=== PATIENT | male | born 1935 | race Caucasian/White ===

== ENCOUNTER → 2016-07-23 | Day surgery (SDC) | payer BC ==
[2016-07-10 14:50] VITALS: Ht 167.6 cm; Wt 77.3 kg
[~2016-07-23] VITALS: Ht 167.6 cm; Wt 77.3 kg
[~2016-07-23] MED LIST: 500ML BSS 0.3ML EPI 1:1000PF IRRIG ONE; ACET-1256 PO; ACETAMINOPHEN 325 MG TAB PO PRN; AMLO-110 PO; AMLO-114 PO; AMVISC PLUS 0.8ML SYRINGE INT OCU ONE; APIX1TAB3 PO; ATOR-24 PO; ATROPINE SULFATE 0.1 MG/ML 5ML SYR IV PRN; BRIMONIDINE TART 0.2% OP SOLN PER DROP CHARGE ONE; BSS FLUSH ONE; DOCU-94 PO; ENDOCOAT 0.85ML SYRINGE INT OCU ONE; EpHEDrine SULFATE INJ 50 MG/ML AMP IV PRN; EpINEphrine INJ 1MG/ML AMP 1 MG/ML AMP ONE; HYDR25TA4 PO; LACTATED RINGER'S 1000ML 500 ML IV SCH; LIDOCAINE 4% OP SOLN DROP CHARGE ONE; LIDOCAINE 4% OP SOLN DROP CHARGE OPL SCH; LIDOCAINE HCL 1% MPF 2 ML VIAL ONE; METH500T3 PO; METO25TA56 PO; MIDAZOLAM HCL 1 MG/ML 2ML VIAL ONE; MOXIFLOXACIN OPH SOLN PER DROP CHARGE ONE; OMEP20TA PO; POVIDONE-IODINE OP SOLN 30 ML BTL ONE; PROPARACAINE 0.5% OP SOLN PER DROP CHARGE OPL SCH; RIVA1TAB4 PO; TAMS0.4C38 PO; TOBRAMYCIN/DEXAMETHASONE OPH OINT PER APPLN CHARGE ONE
[2016-07-23] MEDS: PHENYLEPHRINE HCL 2.5% OP SOLN PER DROP CHARGE OPL SCH ×2 (07:11→07:16)
[2016-07-23] MEDS: TROPICAMIDE 1% OP SOLN PER DROP CHARGE OPL SCH ×2 (07:12→07:17)
[2016-07-23] MEDS: CYCLOPENTOLATE HCL 1% OP SOLN PER DROP CHARGE OPL SCH ×2 (07:13→07:18)
[2016-07-23] MEDS: KETOROLAC 0.5% OP SOLN PER DROP CHARGE OPL SCH ×2 (07:14→07:19)
[2016-07-23] MEDS: MOXIFLOXACIN OPH SOLN PER DROP CHARGE OPL SCH ×2 (07:15→07:20)
--- NOTE | 2016-07-23 07:26 | History & Physical Bridge - [place] ---
H&P Re-Evaluation Bridge Note: I have examined the patient, reviewed the History & Physical and in the interval since the performance of the History & Physical I have noted the following changes of clinical significance: No changes noted
--- NOTE | 2016-07-23 08:25 | Discharge Instructions-SurgCtr ---
Discharge Instructions Visit Reason for Visit: Cataract Left Eye Discharge Discharge Diagnosis / Problem: cataract left eye Discharge Goals Goal(s): Improve function Activity Recommendations Activity Limitations: per Instructions/Follow-up section Lifting Limitations: no more than 5 pounds Anesthesia . Post Anesthesia Instructions: If you have had General Anesthesia or IV Sedation: * Do not drive today. * Resume driving when surgeon permits. * Do not make important decisions or sign legal documents today. * Call surgeon for: 1. Temperature elevations greater than 101 degrees F. 2. Uncontrollable pain. 3. Excessive bleeding. 4. Persistent nausea and vomiting. 5. Medication intolerance (nausea, vomiting or rash). * For nausea and vomiting use only clear liquids such as: tea, soda, bouillon until nausea subsides, then gradually increase diet as tolerated. * If you have any concerns or questions, call your surgeon's office. If physician is unavailable and it is an emergency, call 911 or go to the nearest emergency room. . Instructions / Follow-Up Instructions / Follow-Up ACTIVITY RECOMMENDATIONS: * Light activities * You may walk outside, read, watch television. * Mild irritation and blurred vision are common for the first few days, redness around the white part of the eye is common. MEDICATIONS: Resume previous medications unless instructed otherwise by your surgeon. Eye drops (today and tomorrow): Gatifloxacin - one drop in operative eye every 2 hours while awake Prednisolone 1% - one drop in operative eye every 2 hours while awake Prolensa - one drop in operative eye once daily SPECIAL CARE INSTRUCTIONS: * If any problems or concerns, please call Dr. Pierson's office at . * Keep plastic shield taped over eye to sleep at night. * Keep plastic shield taped over eye except to administer eye drops. * Keep plastic shield on until office visit the following day. FOLLOW UP VISIT: Follow-up with Dr. Pierson in the [place] office as scheduled. If not already scheduled, please call the office at . Diet Recommendations Home Diet: resume previous diet Procedures Procedures Performed: Left Cataract Phacoemulsification With Intraocular Lens Implant Pending Studies Studies pending at discharge: no Medical Emergencies . Who to Call and When: Medical Emergencies: If at any time you feel your situation is an emergency, please call 911 immediately. . Non-Emergent Contact Non-Emergency issues call your: [employer] . . "Provider Documentation" section prepared by Frank Pierson.
--- NOTE | 2016-07-23 08:25 | [facility] Post Operative Brief Note ---
Immediate Operative Summary Operative Date Jul 23, 2016. Pre-Operative Diagnosis Cataract Left Eye Post-Operative Diagnosis Same Procedure(s) Performed Left Cataract Phacoemulsification With Intraocular Lens Implant Surgeon Dr. Pierson Biology Lecturer Surgeon(s) None Estimated Blood Loss None Findings cataract left eye Specimens None Complication(s) None Disposition Recovery Room / PACU
[2016-07-23 08:27] VITALS: TEMP 36.5
[2016-07-23 08:43] VITALS: BP 113/71; PULSE 63; O2SAT 95
--- NOTE | 2016-07-23 08:43 | Anesthesia Progress Nt - [facility] ---
Anesthesia Post Op Note Date & Time Jul 23, 2016 at 08:42 Vital Signs Pain Intensity: 0 Vital Signs Past 12 Hours Date Time Temp Pulse Resp B/P Pulse Ox O2 Delivery O2 Flow Rate FiO2 07/23/16 08:27 36.5 78 20 123/70 93 Room Air 07/23/16 06:49 36.4 80 16 118/79 96 Room Air Notes Mental Status: alert / awake / arousable, participated in evaluation Pt Amnestic to Procedure: Yes Nausea / Vomiting: adequately controlled Pain: adequately controlled Airway Patency, RR, SpO2: stable & adequate BP & HR: stable & adequate Hydration State: stable & adequate Anesthetic Complications: no major complications apparent
--- NOTE | 2016-07-23 08:51 | OPERATIVE REPORT ---
DATE OF OPERATION: 07/23/2016 PREOPERATIVE DIAGNOSIS: Cataract, left eye. POSTOPERATIVE DIAGNOSIS: Cataract, left eye. PROCEDURE: Phacoemulsification cataract extraction with intraocular lens placement, left eye. SURGEON: Dr. Pierson. COMPLICATIONS: None. ESTIMATED BLOOD LOSS: None. ANESTHESIA: Topical with sedation. OPERATION AND FINDINGS: After informed consent was obtained in the holding area the patient was wheeled back to the Operating Room where cardiac monitoring leads and oxygen by nasal cannula was administered by Anesthesia. Gentle IV sedation was given, and the patient's left eye was prepped and draped in usual sterile fashion. A wire lid speculum was placed into the left eye and the operating microscope was swung into position. Using 0.12 forceps and a Supersharp blade a paracentesis port was made 3 o'clock hours away from the 3 o'clock position of patient's left eye. 1% non-preserved Lidocaine was then injected into the anterior chamber for anesthesia. A 2.2 mm keratotome blade was then used to make a shelved clear corneal incision at the 3 o'clock position of his left eye. Amvisc was injected into the anterior chamber and a cystotome and Utrata forceps were used to perform a curvilinear capsulorrhexis. BSS on a hydrodissection cannula was used to hydrodissect the lens nucleus away from the capsular bag. The phacoemulsification handpiece was then used in a stop and chop fashion to remove the lens nucleus. The irrigation and aspiration handpiece was then used to remove the residual cortical material. Amvisc was injected into the capsular bag and anterior chamber and a Bausch \T\ Lomb MX60, 23.0 Diopter intraocular lens was injected into the capsular bag. Irrigation and aspiration handpiece was used to remove the residual viscoelastic material. The wounds were hydrated and noted to be watertight. The wire lid speculum was removed from the eye. Vigamox, Brimonidine, and TobraDex ointment were placed on the eye and it was shielded. It should be noted that EndoCoat was used throughout the case to protect the cornea endothelium. DISPOSITION: The patient tolerated the procedure well and was wheeled to the post anesthesia care unit in stable condition. I attest to the content of the Intraoperative Record and any orders documented therein. Any exceptions are noted below. I attest to the content of the Intraoperative Record and any orders documented therein. Any exceptio ns are noted below.
== END | disposition home or self-care (01) ==
LOC: X.SURG 06:42
PROVIDERS: ATTEND Ophthalmology
DX: H26.9 Unspecified cataract (principal); I10 Essential (primary) hypertension; J44.9 Chronic obstructive pulmonary disease, unspecified; Z86.73 Personal history of transient ischemic attack (TIA), and cerebral infarction without residual deficits; Z68.28 Body mass index [BMI] 28.0-28.9, adult; Z85.828 Personal history of other malignant neoplasm of skin

== ENCOUNTER → 2016-10-19 | Outpatient (CLI) | payer BC ==
[~2016-10-19] MED LIST changes: -500ML BSS 0.3ML EPI 1:1000PF IRRIG ONE; -ACETAMINOPHEN 325 MG TAB PO PRN; -AMVISC PLUS 0.8ML SYRINGE INT OCU ONE; -ATROPINE SULFATE 0.1 MG/ML 5ML SYR IV PRN; -BRIMONIDINE TART 0.2% OP SOLN PER DROP CHARGE ONE; -BSS FLUSH ONE; -ENDOCOAT 0.85ML SYRINGE INT OCU ONE; -EpHEDrine SULFATE INJ 50 MG/ML AMP IV PRN; -EpINEphrine INJ 1MG/ML AMP 1 MG/ML AMP ONE; -LACTATED RINGER'S 1000ML 500 ML IV SCH; -LIDOCAINE 4% OP SOLN DROP CHARGE ONE; -LIDOCAINE 4% OP SOLN DROP CHARGE OPL SCH; -LIDOCAINE HCL 1% MPF 2 ML VIAL ONE; -MIDAZOLAM HCL 1 MG/ML 2ML VIAL ONE; -MOXIFLOXACIN OPH SOLN PER DROP CHARGE ONE; -POVIDONE-IODINE OP SOLN 30 ML BTL ONE; -PROPARACAINE 0.5% OP SOLN PER DROP CHARGE OPL SCH; -TOBRAMYCIN/DEXAMETHASONE OPH OINT PER APPLN CHARGE ONE
== END | disposition home or self-care (01) ==
LOC: C.LABMFLN 12:01
PROVIDERS: ATTEND Family Medicine
DX: R31.9 Hematuria, unspecified (principal)

== ENCOUNTER → 2016-10-19 | Outpatient (CLI) | payer BC ==
[2016-10-19 16:44] LABS: BASO % 1.1 %; BASO ABS # 0.07 K/uL (0-0.2); COMPLETE YES; EOS % 6.4 %; HEMATOCRIT 42.9 % (42-52); IG% 0.2 %; LYMPH % 31.1 %; LYMPH ABS # 2.04 K/uL (1.2-3.4); MEAN CELL VOLUME 93.5 fL (80-100); MEAN CORPUSCULAR HEMOGLOBIN 32.7 pg (25-34); MONO % 13.7 %; NEUT % 47.5 %; PLATELET COUNT 245 K/uL (130-400); RED BLOOD COUNT 4.59 M/uL (4.7-6.1); WHITE BLOOD COUNT 6.56 K/uL (4.8-10.8)
[2016-10-19 17:21] LABS: ALT/SGPT 26 U/L (12-78); AST/SGOT 15 U/L (15-37); BLOOD UREA NITROGEN 21 mg/dl (7-18); BUN/CREATININE RATIO 17.1 (10-20); CALCIUM 8.7 mg/dl (8.5-10.1); CARBON DIOXIDE 29 mmol/L (21-32); CHLORIDE 104 mmol/L (98-107); CHOLESTEROL 146 mg/dl (0-200); GLUCOSE 94 mg/dl (70-99); MAGNESIUM 1.8 mg/dl (1.8-2.4); POTASSIUM 3.8 mmol/L (3.5-5.1); SODIUM 141 mmol/L (136-145); TRIGLYCERIDES 85 mg/dl (0-150); VERY LOW DENSITY LIPOPROT CALC 17 mg/dl
[2016-10-19 17:22] LABS: CHOLESTEROL/HDL RATIO 3.2; HDL CHOLESTEROL 46 mg/dl; LDL CHOLESTEROL CALCULATED 83 mg/dl
--- NOTE | 2016-10-19 18:26 | DIAGNOSTIC IMAGING REPORT ---
ABDOMEN AND PELVIS CT WITH IV AND ORAL CONTRAST CT DOSE: 422.13 mGy.cm HISTORY: R31.9 [id number] Abdominal pain, acute, right lower quadrant TECHNIQUE: Multiaxial CT images of the abdomen and pelvis were performed following the use of intravenous and oral contrast. COMPARISON STUDY: Abdomen and pelvis CT 12/13/2014. FINDINGS: The heart remains enlarged. Bibasilar interstitial thickening. There is a stable 1 cm nodule within the right lower lobe on image 15. No suspicious lytic or blastic osseous lesions. The liver, gallbladder, pancreas, and adrenal glands are unremarkable. A normal spleen is not identified. 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 Some of these are calcified. These remain unchanged. Multiple bilateral renal hypodense lesions are not significantly changed. These likely represent cysts. Dominant lesion within the upper pole of the right kidney measures 6.7 cm. No renal stones or hydronephrosis. Right posterior bladder diverticulum is again noted. No retroperitoneal lymphadenopathy. Tiny fat-containing umbilical hernia. Colonic diverticulosis. No bowel wall thickening or obstruction. Normal appendix. Bladder is mildly distended. There may be mild mild bladder wall thickening. The prostate gland is mildly enlarged. This protrudes into the bladder base. IMPRESSION: 1. No bowel wall thickening or obstruction. 2. Normal appendix. 3. Colonic diverticulosis. 4. Multiple bilateral renal hypodense lesions are not significantly changed. These favor cysts. 5. Bladder is mildly distended. There may be mild bladder wall thickening. Recommend correlation with urinalysis. 6. Stable 1 cm nodule within the right lower lobe which demonstrates near 2 year stability. Please refer to the chart below for recommended follow-up. Please refer to below summary of Fleischner criteria recommendations for follow-up of incidental CT nodules (Brett Pierce, Guidelines for management of small pulmonary nodules detected on CT scans: A statement from the Fleischner Society, Radiology 237: [phone].) SOLID NODULES Solitary nodule size: <6 mm * Low risk patients: no follow-up needed * high risk patients: optional CT at 12 months Solitary nodule size: 6-8 mm * Low risk patients: follow-up at 6-12 months, then consider further follow-up at 18-24 months * high risk patients: initial follow-up CT at 6-12 months and then at 18-24 months if no change Solitary nodule size: >8 mm * either low or high risk patients - consider follow-up CT at 3 months, and/or CT-PET, and/or biopsy Multiple nodules size: <6 mm * Low risk patients: no routine follow-up * high risk patients: optional CT at 12 months Multiple nodules size: 6-8 mm * Low risk patients: follow-up at 3-6 months, then consider further follow-up at 18-24 months * high risk patients: follow-up at 3-6 months, then at 18-24 months if no change Multiple nodules size: >8 mm * Low risk patients: follow-up at 3-6 months, then consider further follow-up at 18-24 months * high risk patients: follow-up at 3-6 months, then at 18-24 months if no change Note: newly detected indeterminate nodule in persons 35 years of age or older. * Low risk patients: minimal or absent history of smoking and/or other known risk factors * high risk patients: history of smoking or of other known risk factors (e.g. first degree relative with lung cancer, or exposure to asbestos, radon, uranium) * if a nodule up to 8 mm is partly solid or is ground glass further follow-up is required after 24 months to exclude possible slow growing adenocarcinoma (JAYLYN) SUBSOLID NODULES Solitary pure ground-glass nodule * nodule size <6 mm - no CT follow-up required * nodule size >=6 mm - follow-up CT at 6-12 months, then every 2 years until 5 years Solitary part-solid nodule * nodule size <6 mm - no CT follow-up required * nodule size >=6 mm - follow-up CT at 3-6 months. If unchanged, and solid component remains <6 mm, then annual follow-up for 5 years Multiple subsolid nodules * nodule size <6 mm - follow-up CT at 3-6 months, consider further follow-up at 2 and 4 years if stable * nodule size >=6 mm - follow-up CT at 3-6 months, subsequent management based on the most suspicious nodule(s) Electronically signed by: Saqib Boateng M.D. 10/19/2016 6:24 PM Dictated Date/Time: 10/19/2016 6:15 PM
== END | disposition home or self-care (01) ==
LOC: C.CTS 15:39
PROVIDERS: ATTEND Family Medicine
DX: N28.89 Other specified disorders of kidney and ureter (principal); R31.9 Hematuria, unspecified; R10.31 Right lower quadrant pain; E78.00 Pure hypercholesterolemia, unspecified; I10 Essential (primary) hypertension

== ENCOUNTER → 2016-11-12 | Outpatient (CLI) | payer BC ==
[2016-11-12 18:47] LABS: BASO % 0.7 %; BASO ABS # 0.05 K/uL (0-0.2); EOS % 5.3 %; HEMATOCRIT 42.5 % (42-52); IG% 0.3 %; LYMPH % 27.1 %; LYMPH ABS # 1.91 K/uL (1.2-3.4); MEAN CELL VOLUME 93.6 fL (80-100); MEAN PLATELET VOLUME 11.5 fL (7.4-10.4); MONO % 10.9 %; NEUT % 55.7 %; PLATELET COUNT 231 K/uL (130-400); RED BLOOD COUNT 4.54 M/uL (4.7-6.1); WHITE BLOOD COUNT 7.04 K/uL (4.8-10.8)
[2016-11-12 18:49] LABS: COMPLETE YES; MEAN CORPUSCULAR HGB CONC 35.3 g/dl (32-36)
[2016-11-12 20:02] LABS: BLOOD UREA NITROGEN 20 mg/dl (7-18); CHLORIDE 106 mmol/L (98-107); GLUCOSE 91 mg/dl (70-99); POTASSIUM 4.2 mmol/L (3.5-5.1); SODIUM 142 mmol/L (136-145)
[2016-11-12 20:03] LABS: BUN/CREATININE RATIO 18.5 (10-20); CALCIUM 8.5 mg/dl (8.5-10.1); CARBON DIOXIDE 26 mmol/L (21-32)
== END | disposition home or self-care (01) ==
LOC: C.LABMFLN 12:26
PROVIDERS: ATTEND Family Medicine
DX: R31.9 Hematuria, unspecified (principal); R10.31 Right lower quadrant pain; N28.89 Other specified disorders of kidney and ureter; N40.0 Benign prostatic hyperplasia without lower urinary tract symptoms; R10.2 Pelvic and perineal pain

== ENCOUNTER → 2016-12-17 | Outpatient (CLI) | payer BC ==
[2016-12-17 18:17] LABS: AMYLASE 62 U/L (25-115)
[2016-12-17 19:59] LABS: LYME DISEASE AB IGG NEG (NEG); LYME DISEASE AB IGM NEG (NEG)
== END | disposition home or self-care (01) ==
LOC: C.LABMFLN 12:41
PROVIDERS: ATTEND Family Medicine
DX: R11.0 Nausea (principal); R42 Dizziness and giddiness; M79.1 Myalgia; Z23 Encounter for immunization

== ENCOUNTER → 2016-12-20 | Outpatient (CLI) | payer BC ==
--- NOTE | 2016-12-20 08:40 | DIAGNOSTIC IMAGING REPORT ---
(LIVER) ABDOMEN LIMITED HISTORY: 81 years Male R10.9 Abdominal pain in the right upper abdomen COMPARISON: CT abdomen and pelvis 10/19/2016 TECHNIQUE: Multiple real-time sonographic images of the abdominal right upper quadrant were obtained assessing grayscale appearance and color flow. FINDINGS: Pancreas is mostly obscured by bowel gas with the imaged portions appearing mildly fatty replaced. The hepatic parenchyma is slightly heterogeneous which is nonspecific without focal mass identified. Gallbladder is partly contracted without gallbladder wall thickening, pericholecystic fluid collections or shadowing cholelithiasis. Common bile duct is within normal limits, 0.45 cm. Multiple cysts are again seen within the right kidney. IMPRESSION: 1. No evidence of cholelithiasis or acute cholecystitis. 2. No biliary ductal dilatation. 3. Multiple right-sided renal cysts redemonstrated. The above report was generated using voice recognition software. It may contain grammatical, syntax or spelling errors. Electronically signed by: Mc Roy M.D. 12/20/2016 8:39 AM Dictated Date/Time: 12/20/2016 8:33 AM
--- NOTE | 2016-12-20 09:12 | DIAGNOSTIC IMAGING REPORT ---
GI SERIES W/AIR ROUTINE CLINICAL HISTORY: R10.9 Abdominal [id number] COMPARISON STUDY: None FLUOROSCOPY TIME: 3.2 minutes. 25 fluoroscopic spot images were acquired.. FINDINGS: The patient swallowed effervescent granules and barium without difficulty. There is esophageal dysmotility. There is mild reflux. The patient swallowed one half inch barium tablet which passed into the stomach. There are multiple gastric filling defects consistent with polyps. In addition there is an area of mucosal irregularity visualized on image #11/25. Endoscopic correlation is recommended. No duodenal bulb abnormalities are evident. The ligament Treitz is located in the normal anatomical position. IMPRESSION: 1. Multiple gastric filling defects consistent with polyps 2. Small area of mucosal irregularity as visualized in image number 11/25 3. Endoscopic follow-up is recommended Electronically signed by: Rony Honeycutt M.D. 12/20/2016 9:10 AM Dictated Date/Time: 12/20/2016 9:07 AM
== END | disposition home or self-care (01) ==
LOC: C.ULTR 07:58
PROVIDERS: ATTEND Family Medicine
DX: R10.9 Unspecified abdominal pain (principal)

== ENCOUNTER → 2017-01-07 | Day surgery (SDC) | payer BC ==
[2016-12-27 11:28] VITALS: Ht 167.6 cm; Wt 77.3 kg
[~2017-01-07] VITALS: Ht 167.6 cm; Wt 77.3 kg
[~2017-01-07] MED LIST changes: -AMLO-110 PO; -HYDR25TA4 PO; +LIDOCAINE HCL 2% 2 ML VIAL (20MG/ML) ONE; -METH500T3 PO; +PROPOFOL IV EMULSION 10 MG/ML 20 ML VIAL IV ONE; -RIVA1TAB4 PO
[2017-01-07 14:49] VITALS: TEMP 36.4
--- NOTE | 2017-01-07 15:08 | Endo History and Physical ---
History & Physical Date of Service: Jan 07, 2017. Chief Complaint: abdominal pain Referring Physician: Dr. 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) Hx Thoracic Surgery: No Hx Orthopedic: No Hx Urinary Tract Surgery: No Family History None Social History Smoking Status: Never Smoker Hx Substance Use: No Hx Alcohol Use: No Allergies Coded Allergies: Lisinopril (Verified Adverse Reaction, Mild, DIZZINESS, 12/27/16) Current Medications Reported Home Medications Medications Dose Route/Sig Max Daily Dose Days Date Category Tylenol (Acetaminophen) 500 Mg Tab 500 Mg PO BID PRN 12/27/16 Reported Eliquis (Apixaban) 5 Mg Tab 5 Mg PO BID 12/27/16 Reported Flomax (Tamsulosin Hcl) 0.4 Mg Cap 0.4 Mg PO HS 12/27/16 Reported Norvasc (Amlodipine Besylate) 10 Mg Tab 10 Mg PO QAM 12/27/16 Reported Colace (Docusate Sodium) 100 Mg Cap 1 Cap PO HS 07/10/16 Reported Omeprazole 20 Mg Tab 40 Mg PO QAM 07/10/16 Reported Lipitor (Atorvastatin Calcium) 40 Mg Tab 40 Mg PO HS 07/10/16 Reported Lopressor (Metoprolol Tartrate) 25 Mg Tab 25 Mg PO BID 07/10/16 Reported Vital Signs Weight (Kilograms): 77.27 Height (Feet): 5 Height (Inches): 6 Date Time Temp Pulse Resp B/P (MAP) Pulse Ox O2 Delivery O2 Flow Rate FiO2 01/07/17 14:49 36.4 80 18 163/92 (115) 96 Room Air Physical Exam General Appearance: WD/WN Respiratory/Chest: Respiratory effort: no dyspnea Cardiovascular: Heart Auscultation: RRR Abdomen: Inspection & Palpation: soft Assessment and Plan abd pain for EGD
--- NOTE | 2017-01-07 15:29 | Discharge Instructions ---
Endoscopy Patient Instructions Date / Procedure(s) Performed Jan 07, 2017. EGD Allergy Information Coded Allergies: Lisinopril (Verified Adverse Reaction, Mild, DIZZINESS, 12/27/16) Discharge Date / Findings Jan 07, 2017. hiatal hernia, gastric polyps Medication Instructions Stopped Medication(s): took Eliquis yesterday at 1830 Restart Stopped Medication(s): resume meds Reported Home Medications Medications Dose Route/Sig Max Daily Dose Days Date Category Tylenol (Acetaminophen) 500 Mg Tab 500 Mg PO BID PRN 12/27/16 Reported Eliquis (Apixaban) 5 Mg Tab 5 Mg PO BID 12/27/16 Reported Flomax (Tamsulosin Hcl) 0.4 Mg Cap 0.4 Mg PO HS 12/27/16 Reported Norvasc (Amlodipine Besylate) 10 Mg Tab 10 Mg PO QAM 12/27/16 Reported Colace (Docusate Sodium) 100 Mg Cap 1 Cap PO HS 07/10/16 Reported Omeprazole 20 Mg Tab 40 Mg PO QAM 07/10/16 Reported Lipitor (Atorvastatin Calcium) 40 Mg Tab 40 Mg PO HS 07/10/16 Reported Lopressor (Metoprolol Tartrate) 25 Mg Tab 25 Mg PO BID 07/10/16 Reported Provider Instructions Activity Restrictions - No exercising or heavy lifting for 24 hours. - Do not drink alcohol the day of the procedure. - Do not drive a car or operate machinery until the day after the procedure. - Do not make any important decisions or sign important papers in 24 hours after the procedure. Following Day: - Return to full activity which may include returning to work/school. Diet Start your diet with liquids and light foods (jello, soup, juice, toast). Then eat your usual diet if not nauseated. Treatment For Common After Affects For mild abdominal pain, bloating, or excessive gas: - Rest - Eat lightly - Lie on right side Follow-Up Information Follow-up with Dr. Kevin Minaya as scheduled Anesthesia Information What You Should Know You have had a procedure that required some medicine to reduce anxiety and discomfort. This treatment is called moderate sedation. After receiving the treatment, you may be sleepy, but you will be able to breathe on your own. The effects of the treatment may last for several hours. Follow these instructions along with Activity/Diet recommendations noted above: * Do NOT do anything where dizziness or clumsiness would be dangerous. * Rest quietly at home today, then you can be up and about tomorrow. * Have a responsible person stay with you the rest of today. * You may have had an I.V. today. If so, you may take the dressing off later today. Recommendations Call your doctor if: * Trouble breathing * Continuous vomiting for more than 24 hours * Temperature above 101 degrees * Severe abdominal pain or bloating * Pain not relieved by pain medicine ordered * There is increased drainage or redness from any incision * A large amount of rectal bleeding greater than 2-3 tablespoons. (If you had a polyp/s removed or have hemorrhoids, a small amount of blood - from the rectum is to be expected.) * You have any unanswered questions or concerns. IN THE EVENT OF A SERIOUS EMERGENCY, GO TO THE NEAREST EMERGENCY ROOM Your discharge instructions were prepared by provider Adriano Cobb. Patient Instructions Signature Page Hal Fontenot Patient (or Guardian) Signature/Date: I have read and understand the instructions given to me by my caregivers. Caregiver/RN/Doctor Signature/Date: The above-named patient and/or guardian has received patient instructions on this date. + Original Patient Signature Page (only) stays with chart. Please make copy for patient.
--- NOTE | 2017-01-07 15:29 | Anesthesiology Progress Note ---
Anesthesia Post Op Note Date & Time Jan 07, 2017 at 15:29 Vital Signs Pain Intensity: 0 Vital Signs Past 12 Hours Date Time Temp Pulse Resp B/P (MAP) Pulse Ox O2 Delivery O2 Flow Rate FiO2 01/07/17 14:49 36.4 80 18 163/92 (115) 96 Room Air Notes Mental Status: alert / awake / arousable, participated in evaluation Pt Amnestic to Procedure: Yes Nausea / Vomiting: adequately controlled Pain: adequately controlled Airway Patency, RR, SpO2: stable & adequate BP & HR: stable & adequate Hydration State: stable & adequate Anesthetic Complications: no major complications apparent
--- NOTE | 2017-01-07 15:32 | GI REPORT ---
Procedure Date: 01/07/2017 3:02 PM Procedure: Upper GI endoscopy Indications: Epigastric abdominal pain Medicines: Propofol total dose 120 mg IV, Lidocaine 40 mg IV Complications: No immediate complications. Estimated Blood Loss: Estimated blood loss: none. Procedure: Pre-Anesthesia Assessment: - Prior to the procedure, a History and Physical was performed, and patient medications, allergies and sensitivities were reviewed. The patient's tolerance of previous anesthesia was reviewed. - The risks and benefits of the procedure and the sedation options and risks were discussed with the patient. All questions were answered and informed consent was obtained. After obtaining informed consent, the endoscope was passed under direct vision. Throughout the procedure, the patient's blood pressure, pulse, and oxygen saturations were monitored continuously. The scope was introduced through the mouth, and advanced to the second part of duodenum. The upper GI endoscopy was accomplished without difficulty. The patient tolerated the procedure well. Findings: A small hiatus hernia was present. Multiple 4 mm semi-sessile polyps were found in the gastric body. The examined duodenum was normal. Impression: - Small hiatus hernia. - Multiple gastric polyps. - Normal examined duodenum. - No specimens collected. Recommendation: - Discharge patient to home (ambulatory). - Continue present medications. - Return to primary care physician PRN. Adriano Cobb M.D. Adriano Cobb MD 01/07/2017 3:31:36 PM This report has been signed electronically. Note Initiated On: 01/07/2017 3:02 PM I attest to the content of the Intraoperative Record and orders documented therein, exceptions below
[2017-01-07 16:01] VITALS: BP 149/93; PULSE 76; O2SAT 93
== END | disposition home or self-care (01) ==
LOC: C.GI 14:27
PROVIDERS: ATTEND Internal Medicine Gastroenterology
DX: R10.13 Epigastric pain (principal); K44.9 Diaphragmatic hernia without obstruction or gangrene; J44.9 Chronic obstructive pulmonary disease, unspecified; G47.33 Obstructive sleep apnea (adult) (pediatric); I10 Essential (primary) hypertension; E78.5 Hyperlipidemia, unspecified; I48.91 Unspecified atrial fibrillation; K21.9 Gastro-esophageal reflux disease without esophagitis; Z86.73 Personal history of transient ischemic attack (TIA), and cerebral infarction without residual deficits; N40.0 Benign prostatic hyperplasia without lower urinary tract symptoms; Z85.820 Personal history of malignant melanoma of skin

== ENCOUNTER → 2017-03-12 | Outpatient (CLI) | payer BC ==
[~2017-03-12] MED LIST changes: -LIDOCAINE HCL 2% 2 ML VIAL (20MG/ML) ONE; -PROPOFOL IV EMULSION 10 MG/ML 20 ML VIAL IV ONE
[2017-03-12 13:08] LABS: HEMATOCRIT 44.8 % (42-52)
[2017-03-12 14:19] LABS: ALT/SGPT 23 U/L (12-78); AST/SGOT 20 U/L (15-37); BLOOD UREA NITROGEN 19 mg/dl (7-18); BUN/CREATININE RATIO 18.9 (10-20); CALCIUM 8.4 mg/dl (8.5-10.1); CARBON DIOXIDE 26 mmol/L (21-32); CHLORIDE 106 mmol/L (98-107); GLUCOSE 95 mg/dl (70-99); SODIUM 138 mmol/L (136-145)
[2017-03-12 14:20] LABS: CHOLESTEROL 253 mg/dl (0-200); CHOLESTEROL/HDL RATIO 5.6; HDL CHOLESTEROL 45 mg/dl; LDL CHOLESTEROL CALCULATED 179 mg/dl; TRIGLYCERIDES 143 mg/dl (0-150); VERY LOW DENSITY LIPOPROT CALC 29 mg/dl
== END | disposition home or self-care (01) ==
LOC: C.LABMFLN 08:00
PROVIDERS: ATTEND Family Medicine
DX: E78.00 Pure hypercholesterolemia, unspecified (principal); D64.9 Anemia, unspecified; I48.91 Unspecified atrial fibrillation

== ENCOUNTER → 2017-07-02 | Outpatient (CLI) | payer BC ==
[2017-07-02 17:58] LABS: BASO % 1.1 %; BASO ABS # 0.07 K/uL (0-0.2); EOS % 4.8 %; HEMATOCRIT 41.3 % (42-52); HEMOGLOBIN 14.1 g/dL (14.0-18.0); IG# 0.01 K/uL (0.00-0.02); LYMPH ABS # 2.14 K/uL (1.2-3.4); MEAN CELL VOLUME 94.1 fL (80-100); MEAN CORPUSCULAR HEMOGLOBIN 32.1 pg (25-34); MEAN CORPUSCULAR HGB CONC 34.1 g/dl (32-36); MEAN PLATELET VOLUME 11.4 fL (7.4-10.4); MONO ABS # 0.82 K/uL (0.11-0.59); NEUT % 46.9 %; NEUT ABS # 2.96 K/uL (1.4-6.5); PLATELET COUNT 205 K/uL (130-400)
[2017-07-02 18:17] LABS: BLOOD UREA NITROGEN 19 mg/dl (7-18); CALCIUM 8.8 mg/dl (8.5-10.1); CARBON DIOXIDE 27 mmol/L (21-32); CREATININE 1.16 mg/dl (0.60-1.40); GLUCOSE 87 mg/dl (70-99); POTASSIUM 4.3 mmol/L (3.5-5.1); SODIUM 138 mmol/L (136-145)
== END | disposition home or self-care (01) ==
LOC: C.LABMFLN 15:41
PROVIDERS: ATTEND Family Medicine
DX: K62.5 Hemorrhage of anus and rectum (principal)

== ENCOUNTER → 2017-07-25 | Day surgery (SDC) | payer BC ==
[2017-07-17 13:32] VITALS: Ht 167.6 cm; Wt 79.5 kg
[~2017-07-25] VITALS: Ht 167.6 cm; Wt 79.5 kg
[~2017-07-25] MED LIST changes: +FINA5TAB PO; +LIDOCAINE HCL 2% 2 ML VIAL (20MG/ML) ONE; -OMEP20TA PO; +OMEP40CA41 PO; +PHENYLEPHRINE 100MCG/ML 5ML SYR ONE; +PROPOFOL IV EMULSION 10 MG/ML 20 ML VIAL IV ONE
[2017-07-25 14:46] VITALS: TEMP 36.5
--- NOTE | 2017-07-25 15:02 | Endo History and Physical ---
History & Physical Date of Service: Jul 25, 2017. Chief Complaint: rectal bleeding Referring Physician: Dr. 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) Hx Thoracic Surgery: No Hx Orthopedic: No Hx Urinary Tract Surgery: No Family History None Social History Smoking Status: Never Smoker Hx Substance Use: No Hx Alcohol Use: No Allergies Coded Allergies: Lisinopril (Verified Adverse Reaction, Mild, DIZZINESS, 07/17/17) Current Medications Reported Home Medications Medications Dose Route/Sig Max Daily Dose Days Date Category Dose Instructions Proscar (Finasteride) 5 Mg Tab 5 Mg PO QPM 07/17/17 Reported Prilosec (Omeprazole) 40 Mg Cap 20 Mg PO QAM 07/17/17 Reported Tylenol (Acetaminophen) 500 Mg Tab 500 Mg PO BID PRN 12/27/16 Reported Eliquis (Apixaban) 5 Mg Tab 5 Mg PO BID 12/27/[address] WHITLEY FOR THE TIME BEING. Flomax (Tamsulosin Hcl) 0.4 Mg Cap 0.4 Mg PO HS 12/27/16 Reported Norvasc (Amlodipine Besylate) 10 Mg Tab 10 Mg PO QAM 12/27/16 Reported Colace (Docusate Sodium) 100 Mg Cap 1 Cap PO HS 07/10/16 Reported Lipitor (Atorvastatin Calcium) 40 Mg Tab 40 Mg PO HS 07/10/16 Reported Lopressor (Metoprolol Tartrate) 25 Mg Tab 25 Mg PO BID 07/10/16 Reported Vital Signs Weight (Kilograms): 79.55 Height (Feet): 5 Height (Inches): 6 Date Time Temp Pulse Resp B/P (MAP) Pulse Ox O2 Delivery O2 Flow Rate FiO2 07/25/17 14:46 36.5 87 20 132/98 (109) 97 Room Air Physical Exam General Appearance: WD/WN Respiratory/Chest: Respiratory effort: no dyspnea Cardiovascular: Heart Auscultation: RRR Abdomen: Inspection & Palpation: soft Assessment and Plan rectal bleeding for colonoscopy
--- NOTE | 2017-07-25 15:28 | Discharge Instructions ---
Endoscopy Patient Instructions Date / Procedure(s) Performed Jul 25, 2017. Colonoscopy Allergy Information Coded Allergies: Lisinopril (Verified Adverse Reaction, Mild, DIZZINESS, 07/17/17) Discharge Date / Findings Jul 25, 2017. diverticulosis, polyp Medication Instructions Stopped Medication(s): has been off Eloquis since June Restart Stopped Medication(s): resume meds Reported Home Medications Medications Dose Route/Sig Max Daily Dose Days Date Category Dose Instructions Proscar (Finasteride) 5 Mg Tab 5 Mg PO QPM 07/17/17 Reported Prilosec (Omeprazole) 40 Mg Cap 20 Mg PO QAM 07/17/17 Reported Tylenol (Acetaminophen) 500 Mg Tab 500 Mg PO BID PRN 12/27/16 Reported Eliquis (Apixaban) 5 Mg Tab 5 Mg PO BID 12/27/[address] WHITLEY FOR THE TIME BEING. Flomax (Tamsulosin Hcl) 0.4 Mg Cap 0.4 Mg PO HS 12/27/16 Reported Norvasc (Amlodipine Besylate) 10 Mg Tab 10 Mg PO QAM 12/27/16 Reported Colace (Docusate Sodium) 100 Mg Cap 1 Cap PO HS 07/10/16 Reported Lipitor (Atorvastatin Calcium) 40 Mg Tab 40 Mg PO HS 07/10/16 Reported Lopressor (Metoprolol Tartrate) 25 Mg Tab 25 Mg PO BID 07/10/16 Reported Provider Instructions Activity Restrictions - No exercising or heavy lifting for 24 hours. - Do not drink alcohol the day of the procedure. - Do not drive a car or operate machinery until the day after the procedure. - Do not make any important decisions or sign important papers in 24 hours after the procedure. Following Day: - Return to full activity which may include returning to work/school. Diet Start your diet with liquids and light foods (jello, soup, juice, toast). Then eat your usual diet if not nauseated. Treatment For Common After Affects For mild abdominal pain, bloating, or excessive gas: - Rest - Eat lightly - Lie on right side Follow-Up Information Follow-up with Dr. Kevin Whitley as scheduled Anesthesia Information What You Should Know You have had a procedure that required some medicine to reduce anxiety and discomfort. This treatment is called moderate sedation. After receiving the treatment, you may be sleepy, but you will be able to breathe on your own. The effects of the treatment may last for several hours. Follow these instructions along with Activity/Diet recommendations noted above: * Do NOT do anything where dizziness or clumsiness would be dangerous. * Rest quietly at home today, then you can be up and about tomorrow. * Have a responsible person stay with you the rest of today. * You may have had an I.V. today. If so, you may take the dressing off later today. Recommendations Call your doctor if: * Trouble breathing * Continuous vomiting for more than 24 hours * Temperature above 101 degrees * Severe abdominal pain or bloating * Pain not relieved by pain medicine ordered * There is increased drainage or redness from any incision * A large amount of rectal bleeding greater than 2-3 tablespoons. (If you had a polyp/s removed or have hemorrhoids, a small amount of blood - from the rectum is to be expected.) * You have any unanswered questions or concerns. IN THE EVENT OF A SERIOUS EMERGENCY, GO TO THE NEAREST EMERGENCY ROOM Your discharge instructions were prepared by provider Adriano Cobb. Patient Instructions Signature Page Hal Fontenot Patient (or Guardian) Signature/Date: I have read and understand the instructions given to me by my caregivers. Caregiver/RN/Doctor Signature/Date: The above-named patient and/or guardian has received patient instructions on this date. + Original Patient Signature Page (only) stays with chart. Please make copy for patient.
--- NOTE | 2017-07-25 15:32 | GI REPORT ---
Procedure Date: 07/25/2017 3:06 PM Procedure: Colonoscopy Indications: Rectal bleeding Medicines: Propofol total dose 230 mg IV, Lidocaine 20 mg IV Complications: No immediate complications. Estimated Blood Loss: Estimated blood loss: none. Procedure: Pre-Anesthesia Assessment: - Prior to the procedure, a History and Physical was performed, and patient medications, allergies and sensitivities were reviewed. The patient's tolerance of previous anesthesia was reviewed. - The risks and benefits of the procedure and the sedation options and risks were discussed with the patient. All questions were answered and informed consent was obtained. After I obtained informed consent, the scope was passed under direct vision. Throughout the procedure, the patient's blood pressure, pulse, and oxygen saturations were monitored continuously. The scope was introduced through the anus and advanced to the cecum, identified by appendiceal orifice and ileocecal valve. The colonoscopy was performed without difficulty. The patient tolerated the procedure well. The quality of the bowel preparation was excellent. Findings: A 7 mm polyp was found in the sigmoid colon. The polyp was semi-pedunculated. The polyp was removed with a hot snare. Resection and retrieval were complete. Estimated blood loss: none. Multiple diverticula were found in the sigmoid colon and transverse colon. Non-bleeding external and internal hemorrhoids were found during endoscopy. The hemorrhoids were large. Impression: - One 7 mm polyp in the sigmoid colon, removed with a hot snare. Resected and retrieved. - Diverticulosis in the sigmoid colon and in the transverse colon. - Non-bleeding external and internal hemorrhoids. Recommendation: - Discharge patient to home (ambulatory). - Continue present medications. - Await pathology results. - Return to primary care physician PRN. Adriano Cobb M.D. Adriano Cobb MD 07/25/2017 3:31:29 PM This report has been signed electronically. Note Initiated On: 07/25/2017 3:06 PM I attest to the content of the Intraoperative Record and orders documented therein, exceptions below
--- NOTE | 2017-07-25 15:50 | Anesthesiology Progress Note ---
Anesthesia Post Op Note Date & Time Jul 25, 2017 at 15:50 Vital Signs Pain Intensity: 0 Vital Signs Past 12 Hours Date Time Temp Pulse Resp B/P (MAP) Pulse Ox O2 Delivery O2 Flow Rate FiO2 07/25/17 15:48 69 20 105/65 (78) 95 Room Air 07/25/17 15:34 78 20 105/78 (87) 97 Room Air 07/25/17 14:46 36.5 87 20 132/98 (109) 97 Room Air Notes Mental Status: alert / awake / arousable, participated in evaluation Pt Amnestic to Procedure: Yes Nausea / Vomiting: adequately controlled Pain: adequately controlled Airway Patency, RR, SpO2: stable & adequate BP & HR: stable & adequate Hydration State: stable & adequate Anesthetic Complications: no major complications apparent
[2017-07-25 16:02] VITALS: BP 120/76; PULSE 78; O2SAT 95
== END | disposition home or self-care (01) ==
LOC: C.GI 14:16
PROVIDERS: ATTEND Internal Medicine Gastroenterology
DX: K62.5 Hemorrhage of anus and rectum (principal); D12.5 Benign neoplasm of sigmoid colon; K57.30 Diverticulosis of large intestine without perforation or abscess without bleeding; K64.8 Other hemorrhoids; G47.33 Obstructive sleep apnea (adult) (pediatric); I10 Essential (primary) hypertension; I48.91 Unspecified atrial fibrillation; E78.5 Hyperlipidemia, unspecified; K21.9 Gastro-esophageal reflux disease without esophagitis; Z86.73 Personal history of transient ischemic attack (TIA), and cerebral infarction without residual deficits; Z88.8 Allergy status to other drugs, medicaments and biological substances

== ENCOUNTER → 2017-08-27 | Outpatient (CLI) | payer BC ==
[~2017-08-27] VITALS: Ht 167.6 cm; Wt 79.8 kg
[~2017-08-27] MED LIST changes: -LIDOCAINE HCL 2% 2 ML VIAL (20MG/ML) ONE; -PHENYLEPHRINE 100MCG/ML 5ML SYR ONE; -PROPOFOL IV EMULSION 10 MG/ML 20 ML VIAL IV ONE
[2017-08-27 11:01] VITALS: BP 102/69; PULSE 57; Ht 167.6 cm; Wt 79.8 kg
== END | disposition home or self-care (01) ==
LOC: C.NEUR 10:29
PROVIDERS: ATTEND Internal Medicine Pulmonary Disease
DX: G47.31 Primary central sleep apnea (principal); I48.91 Unspecified atrial fibrillation; G47.33 Obstructive sleep apnea (adult) (pediatric)

== ENCOUNTER → 2017-12-19 | Outpatient (CLI) | payer BC ==
[~2017-12-19] MED LIST changes: -AMLO-114 PO; +AMLO10TA3 PO; -APIX1TAB3 PO; +CALC625T13 PO; -TAMS0.4C38 PO
[2017-12-19 13:17] LABS: BASO % 1.3 %; BASO ABS # 0.08 K/uL (0-0.2); EOS % 8.3 %; HEMATOCRIT 43.8 % (42-52); HEMOGLOBIN 14.5 g/dL (14.0-18.0); IG# 0.01 K/uL (0.00-0.02); LYMPH % 33.3 %; LYMPH ABS # 2.01 K/uL (1.2-3.4); MEAN CORPUSCULAR HEMOGLOBIN 30.8 pg (25-34); MEAN CORPUSCULAR HGB CONC 33.1 g/dl (32-36); MEAN PLATELET VOLUME 11.9 fL (7.4-10.4); MONO % 10.4 %; MONO ABS # 0.63 K/uL (0.11-0.59); NEUT % 46.5 %; NEUT ABS # 2.81 K/uL (1.4-6.5); PLATELET COUNT 227 K/uL (130-400); RED CELL DISTRIBUTION WIDTH CV 14.4 % (11.5-14.5); RED CELL DISTRIBUTION WIDTH SD 49.2 fL (36.4-46.3); WHITE BLOOD COUNT 6.04 K/uL (4.8-10.8)
[2017-12-19 14:12] LABS: ALBUMIN 3.5 gm/dl (3.4-5.0); ALKALINE PHOSPHATASE 43 U/L (45-117); ALT/SGPT 22 U/L (12-78); AST/SGOT 15 U/L (15-37); BLOOD UREA NITROGEN 22 mg/dl (7-18); CARBON DIOXIDE 25 mmol/L (21-32); CHOLESTEROL 156 mg/dl (0-200); CREATININE 1.03 mg/dl (0.60-1.40); GLUCOSE 95 mg/dl (70-99); LDL CHOLESTEROL CALCULATED 93 mg/dl; POTASSIUM 4.2 mmol/L (3.5-5.1); SODIUM 141 mmol/L (136-145); TOTAL PROTEIN 7.4 gm/dl (6.4-8.2)
== END | disposition home or self-care (01) ==
LOC: C.LABMFLN 07:40
PROVIDERS: ATTEND Family Medicine
DX: E78.00 Pure hypercholesterolemia, unspecified (principal); I10 Essential (primary) hypertension; D64.9 Anemia, unspecified; I48.91 Unspecified atrial fibrillation; I35.9 Nonrheumatic aortic valve disorder, unspecified

== ENCOUNTER 2019-03-19 09:34 | Observation (INO) ==
[2019-03-19 10:12] LABS: Basophils # (auto) 0.08 K/uL (0-0.2); Basophils % (auto) 0.8 %; Eosinophils # (auto) 0.28 K/uL (0-0.5); Eosinophils % (auto) 2.9 %; Hematocrit (blood only) 41.2 % (42-52); Hemoglobin 14.7 g/dL (14.0-18.0); Immature Granulocytes # (auto) 0.03 K/uL (0.00-0.02); Immature Granulocytes % (auto) 0.3 %; Lymphocytes # (auto) 1.65 K/uL (1.2-3.4); Lymphocytes % (auto) 16.8 %; Mean Corpuscular Hemoglobin 32.5 pg (25-34); Mean Corpuscular Hgb Conc 35.7 g/dL (32-36); Mean Corpuscular Volume 90.9 fL (80-100); Mean Platelet Volume 10.7 fL (7.4-10.4); Monocytes # (auto) 0.76 K/uL (0.11-0.59); Monocytes % (auto) 7.7 %; Neutrophils # (auto) 7.02 K/uL (1.4-6.5); Neutrophils % (auto) 71.5 %; Platelet Count 192 K/uL (130-400); RDW Coefficient of Variation 12.9 % (11.5-14.5); RDW Standard Deviation 43.1 fL (36.4-46.3); Red Blood Count 4.53 M/uL (4.7-6.1); White Blood Count 9.82 K/uL (4.8-10.8)
[2019-03-19 10:36] LABS: Albumin Level 3.4 gm/dl (3.4-5.0); BUN Creatinine Ratio 16.1 (10-20); Calcium 8.7 mg/dl (8.5-10.1); Creatinine Clr Calc Pharmacy 47.3 ml/min; Est GFR (African American) 76.4; Est GFR (Non-African American) 65.9
[2019-03-19 10:38] LABS: Appearance Urine Cloudy (Clear); Bacteria Urine Automated Negative (Negative); Bilirubin Urine Negative (Negative); Blood Urine 3+ (Negative); Color Urine Orange; Glucose Urine UA Negative (Negative); Ketones Urine Negative (Negative); Leukocyte Esterase Urine 1+ (Negative); Nitrite Urine Negative (Negative); Protein Urine Trace (Negative); RBC Urine Automated >30 /hpf (0-4); Specific Gravity Urine 1.017 (1.000-1.030); Urobilinogen Urine Negative (Negative)
[2019-03-19 10:51] LABS: Albumin Globulin Ratio 0.8 (0.9-2); Bilirubin,Total 0.6 mg/dl (0.2-1); Thyroid Stimulating Hormone 1.61 uIu/ml (0.300-4.500); Total Protein 7.4 gm/dl (6.4-8.2); Troponin I 0.395 ng/ml (0-0.045)
--- NOTE | 2019-03-19 10:58 | XRay Report ---
XR chest 1V portable HISTORY: 83 years-old Male syncope eval for pna acute syncope COMPARISON: Chest radiograph 12/25/2018 TECHNIQUE: Portable AP view of the chest FINDINGS: Cardiac silhouette is enlarged, unchanged. Calcified plaque the thoracic arch. Mild pulmonary vascula r congestion with chronic interstitial coarsening. No pneumothorax, large pleural effusion or lobar a irspace consolidation. Unchanged patchy bibasilar opacities. Ovoid calcified structures of the abdomi nal left upper quadrant appear unchanged. Degenerative changes of the shoulders and spine. IMPRESSION: 1. Cardiomegaly with chronic interstitial coarsening. 2. Minimal bibasilar opacities suggest atelectasis. The above report was generated using voice recognition software. It may contain grammatical, syntax o r spelling errors. Electronically signed by: Mc Roy M.D. 03/19/2019 10:57 AM
[2019-03-19 11:11] LABS: Potassium 4.3 mmol/L (3.5-5.1)
[2019-03-19 11:13] LABS: INR 1.1 (0.9-1.1); Partial Thromboplastin Time 27.7 Seconds (21.0-31.0); Prothrombin Time 10.9 Seconds (9.0-12.0)
[2019-03-19 11:16] LABS: Magnesium 1.8 mg/dl (1.8-2.4)
[2019-03-19] MEDS ORDERED: ONDANSETRON INJ 2 MG/ML 2 ML VIAL IV PRN (14:08)
[2019-03-19] MEDS ORDERED: LORATADINE 10 MG TAB PO PRN (14:08)
[2019-03-19] MEDS ORDERED: ACETAMINOPHEN 500 MG TAB PO PRN (14:08)
[2019-03-19] MEDS: LACTATED RINGER'S 1,000 ML IV SCH (14:30)
[2019-03-19] MEDS ORDERED: MAGNESIUM SULFATE / D5W 1 GM/100 ML BAG IV ONE (14:30)
--- NOTE | 2019-03-19 15:02 | History & Physical Report ---
Date of Service March 19, 2019 Assessment & Plan (1) Syncope: 83-year-old male with history of coronary artery disease, A. fib on apixaban, recent TAVR on 01/15/2019 bioprosthesis, hypertension, hyperlipidemia, COPDno home O2 requirement, CVA in 2008 status post right carotid endarterectom y, WILLIE presents status post syncopal episode at PCP office today. Syncopal episode Intermittent episodes of lightheadedness, nausea and weakness status post TAVR in January Likely secondary to TAVR procedure versus worsening coronary artery disease versus BPPV Troponin 0. 395 Electrolytes within normal limits EK A. fib concern for fascicular block, T wave inversion in lead III which was also noted on EKG in June 2018 Echo today: EF 60 to 65% no wall motion abnormality, severe asymmetric hypertrophy of the basal septum up to 2 cm otherwise concentric LVH, RV dilated normal systolic function, severe LA dilation and mild RA dilation, bioprosthetic AV valve with acceptable trans-valvular gradient, trace aortic regurg, mild mitral valve regurg, moderate tricuspid regurg, mild pulmonary hypertension Echo 02/18/2019: EF 65% AV area 2.7 mean gradient 4 mmHg, mild perivalvular aortic valve regurg, moderate tricuspid regurg, mild mitral valve regurg 12/26/2018: Cardiac cath severe CAD, severe proximal to mid RCA disease. Recommended AVR and revascularization per [facility] team -however it appears that he only had AVR at [facility] Chest x-ray cardiomegaly with chronic interstitial coarsening and minimal bibasilar opacity likely atelectasis Cardiology consulted: ED doc spoke to Dr. Raines who recommended echo N.p.o. for possible cardiac procedure on IV fluids LR at 80 cc/h Given 1 g of mag as mag was 1.8 to optimize Trend troponin x3 every 6 hours Monitor on telemetry Concern for UTI UA positive, sent for culture Previous culture grew coag negative staph Inadequately treated previously as patient stopped a course of Macrobid for concern of blood in urine, continues to have hematuria Started on Rocephin A. fib/hypertension/hyperlipidemia/CAD/CVA Continue home amlodipine, Lopressor, apixaban, aspirin, Lipitor BPH Continue home finasteride GERD Continue home omeprazole Mood disorder Continue home sertraline FEN/GI: On LR 80 cc/h, n.p.o. for possible cardiac procedure Code: Full VT prophylaxis: Apixaban Dispo: PCU telemetry (2) CAD (coronary artery disease): (3) Status post transcatheter aortic valve replacement (TAVR) using bioprosthesis: (4) Atrial fibrillation, persistent: (5) BPH with obstruction/lower urinary tract symptoms: (6) COPD with asthma: (7) GERD without esophagitis: (8) Hypercholesterolemia: (9) Benign essential hypertension: (10) WILLIE (obstructive sleep apnea): History of Present Illness Chief Complaint: Syncopal episode Primary Care Provider: Kevin Minaya MD 83-year-old male with history of coronary artery disease, A. 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 Per patient and family he was at PCPs office for follow-up and felt lightheaded while on the exam table. Was transferred to a chair at which point he passed out for about 20 seconds. He then presented to the ED. Per patient he has been having episodes of lightheadedness, nausea and leg weakness on and off couple times a week since his TAVR in January. Most recently he reports an episode on Saturday of this week, 3 days ago. Yesterday however he felt better and also did some yard work. He denies any chest pain, shortness of breath, palpitations while he was doing yard work. Today however he was not feeling so great and had the episode at the doctor's office. He last saw his hide trimmer on 03/13/2019Dr. Cortez. During these episodes he denies any chest pain, palpitations, shortness of breath. Usually symptoms are worse in the evening. He also reports waking up a few times with lightheadedness at night. At this time he also reports a headache. Of note: Patient was recently diagnosed on 03/03/2019 with UTI and started on Macrobid, urine culture grew coag negative staph. He reports taking Macrobid for only about 3 days but stopped it because he was having blood in his urine which he continues to have. Denies any fever, chills, chest pain, shortness of breath, palpitations, abdominal pain, vomiting, diarrhea, constipation, dysuria or increased urinary frequency Allergies Allergy/AdvReac Type Severity Reaction Status Date / Time lisinopril AdvReac Mild DIZZINESS Verified 03/19/19 07:56 silodosin [From Rapaflo] AdvReac NAUSEA Verified 03/19/19 07:56 tamsulosin AdvReac Verified 03/19/19 07:56 Home Medications Home Medications Medication Instructions Recorded Confirmed Type omeprazole 40 mg capsule,delayed 40 mg PO DAILY #90 cap 12/10/18 03/19/19 Rx release calcium carbonate 500 mg calcium 500 mg PO DAILY #90 tab 12/21/18 03/19/19 Rx (1,250 mg) tablet docusate sodium 100 mg capsule 100 mg PO DAILY #90 cap 12/21/18 03/19/19 Rx finasteride 5 mg tablet 5 mg PO DAILY #90 tab 12/21/18 03/19/19 Rx metoprolol tartrate 25 mg tablet 25 mg PO BID #180 tab 12/21/18 03/19/19 Rx Eliquis 5 mg PO BID 12/24/18 03/19/19 History atorvastatin 20 mg PO QPM 12/24/18 03/19/19 History loratadine [Claritin] 10 mg PO DAILY PRN 12/24/18 03/19/19 History aspirin 81 mg tablet,delayed 81 mg PO DAILY #30 tab 01/21/19 03/19/19 Rx release amlodipine 10 mg tablet 10 mg PO DAILY 03/02/19 03/19/19 History sertraline 25 mg tablet 25 mg PO DAILY #30 tab 03/03/19 03/19/19 Rx acetaminophen [Acetaminophen Extra 1,000 mg PO TID PRN 03/19/19 03/19/19 History Strength] Past Med/Surg History Medical History Atrial fibrillation, permanent Anticoagulated (Chronic) CAD (coronary artery disease) (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) COPD with asthma (Chronic) Carotid artery stenosis (Chronic) Hypercholesterolemia (Chronic) Benign essential hypertension (Chronic) Severe aortic stenosis (Chronic) Atrial fibrillation Surgical History Status post transcatheter aortic valve replacement (TAVR) using bioprosthesis (Chronic) History of blepharoplasty History of colonoscopy History of hemorrhoidectomy History of hernia repair 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 [facility] Family History Father Coronary heart disease Myocardial infarction Sister Breast cancer Social History Preferred Language: Panamanian Communication Ability: Effective Visual Impairment: Limited Hearing Ability: Normal Careers Adviser Required: No Beliefs That Will Affect Care: None marital status: Current Living Situation: Spouse current occupational status: retired Other Information That Helps Us Care for You: No Feels Safe at Home: Yes Safety Concerns: Feels Safe At This Time Smoking Status: Never smoker Second Hand Exposure: No ; Hx Alcohol Use: No Hx Substance Use: No Childhood Exposure to Second-Hand Smoke: No caffeine: No Dental Care, Regularly: No Physical Activity Frequency: Daily Seatbelt Use: always Sunscreen Use: No Review of Systems Review of Systems: As per HPI Physical Exam Physical Exam: General: Pt became lightheaded during exam HEENT: moist mucous membranes Neuro: A&O x 4 Pulm: mild LLL crackles appreciated, equal breath sounds bilaterally CV: irregular rhythm, AV loud closing sound, no m/r/g, cap refill 2 secs Abdomen:+BS, no TTP in all quadrants, non-distended LE: no LE edema, no calf TTP Results & Data Vital Signs (Past 12 Hours) Vital Signs Temp Pulse Resp BP Pulse Ox 03/19/19 11:30 76 23 154/72 H 95 03/19/19 11:00 67 23 148/83 H 93 03/19/19 10:30 64 20 151/80 H 95 03/19/19 10:19 146/126 H 95 03/19/19 10:17 71 24 122/76 03/19/19 10:16 83 26 H 141/70 H 92 03/19/19 10:06 66 20 92 03/19/19 10:00 67 27 H 132/77 91 03/19/19 09:42 67 25 H 93 03/19/19 09:38 75 28 H 144/73 H 93 03/19/19 09:37 36.3 C L 72 20 144/73 H 92 Diagnostic Findings XR chest 1V portable HISTORY: 83 years-old Male syncope eval for pna acute syncope COMPARISON: Chest radiograph 12/25/2018 TECHNIQUE: Portable AP view of the chest FINDINGS: Cardiac silhouette is enlarged, unchanged. Calcified plaque the thoracic arch. Mild pulmonary vascular congestion with chronic interstitial coarsening. No pneumothorax, large pleural effusion or lobar airspace consolidation. Unchanged patchy bibasilar opacities. Ovoid calcified structures of the abdominal left upper quadrant appear unchanged. Degenerative changes of the shoulders and spine. IMPRESSION: 1. Cardiomegaly with chronic interstitial coarsening. 2. Minimal bibasilar opacities suggest atelectasis. Medications Administered Current Inpatient Medications Acetaminophen (Tylenol) 1,000 mg PO TID PRN PRN Reason: Pain Stop: 04/18/19 14:07 Amlodipine Besylate (Norvasc) 10 mg PO DAILY [facility] Stop: 04/19/19 08:59 Apixaban (Eliquis) 5 mg PO BID [facility] Stop: 04/18/19 20:59 Aspirin (Ecotrin Ectab) 81 mg PO DAILY [facility] Stop: 04/19/19 08:59 Atorvastatin Calcium (Lipitor) 20 mg PO QPM [facility] Stop: 04/18/19 20:59 Calcium Carbonate (Os-Javier 500) 1,250 mg PO DAILY [facility] Stop: 04/19/19 08:59 Docusate Sodium (Colace) 100 mg PO DAILY [facility] Stop: 04/19/19 08:59 Finasteride (Proscar) 5 mg PO DAILY [facility] Stop: 04/19/19 08:59 Lactated Ringer's (Lr) 1,000 mls @ 80 mls/hr IV .[id number] [facility] Stop: 04/18/19 14:07 Last Admin: 03/19/19 14:30 Dose: 80 mls/hr Documented by: Magnesium Sulfate/Dextrose (Magnesium Sulfate / D5w) 1 gm in 100 mls @ 100 mls/hr IV ONE ONE Stop: 03/19/19 15:29 Last Admin: 03/19/19 14:28 Dose: 100 mls/hr Documented by: Ceftriaxone Sodium 1,000 mg/ (Dextrose) 50 mls @ 100 mls/hr IV DAILY@1500 [facility]; Protocol Stop: 03/24/19 15:29 Loratadine (Claritin) 10 mg PO DAILY PRN PRN Reason: Allergy Symptoms Stop: 04/18/19 14:07 Metoprolol Tartrate (Lopressor) 25 mg PO BID [facility] Stop: 04/18/19 20:59 Ondansetron HCl (Zofran) 4 mg IV Q6H PRN PRN Reason: Nausea Stop: 04/18/19 14:07 Pantoprazole Sodium (Protonix) 40 mg PO DAILY [facility] Stop: 04/19/19 08:59 Sertraline HCl (Zoloft) 25 mg PO DAILY [facility] Stop: 04/19/19 08:59 Code Status & VTE Plan Code Status Full VTE Prophylaxis Plan VTE Prophylaxis will be ordered: Yes Supervising Physician Co-Signing Physician Notes Patient seen and examined with Dr. Rhoades. I agree with their exam findings, review of systems, assessment and plan. I have personally reviewed the lab work and imaging from today. patient had a syncopal event today while seated at PCP office recent ongoing history of dizziness, describes it as vertigo symptoms have been worsened since he had a TAVR a few months ago no chest pain or pressure, appetite intact event witnessed by family, no seizure activity discussed with Dr. Raines, recommends carotid doppler, trend troponin, try Meclizine Exam: WDWN male, NAD, heart regular S1 S2 no murmurs, lungs CTA bilaterally, normal effort, abdomen soft, ND, NT, +BS neurological exam shows PERRLA, EOMI, no nystagmus, visual alexander and acuity intact, CN II-XII intact, 5/5 muscle strength normal finger to nose testing, rapid alternating movements, no pronator drift, hearing intact some vertigo experienced with turning head to right and laying down Vertigo: could be BPPV since he has positional symptoms continue Meclizine PRN, consult PT for vestibular treatments doubt stroke as he is fully intact neurologically and symptoms have been intermittent for a few months doubt vestibular neuritis as symptoms were not sudden onset doubt Meniere's as hearing intact Syncope: occurred while seated, will treat troponin to rule out silent ME no acute changes on echo check carotid dopplers PT/OT consults, observe on tele PG Care Time/CCT Total # of Minutes Spent Total Time Spent with Patient: Total time spent is greater than 50% in coordination of care (as documented) at patient's floor/unit and/or counseling patient: Resident Activity Tracking Resident Involvement: Resident Care Provided Care Provided: Adult Hospital Medicine (1) CAD (coronary artery disease) Associated angina: angina presence unspecified Coronary Disease-Associated Artery/Lesion type: unspecified vessel or lesion type [place] vs. transplanted heart: [place] heart Qualified Code(s): I25.10 - Atherosclerotic heart disease of [place] coronary artery without angina pectoris (2) Syncope Syncope type: unspecified Qualified Code(s): R55 - Syncope and collapse
--- NOTE | 2019-03-19 15:20 | Emergency Department Note ---
Entered by Radha Pastor acting as a scribe for History of Present Illness General Chief complaint: Syncope (Near Syncope) Stated complaint: syncope Source: patient, family and EMS History of Present Illness Provider complaint: syncope Onset (ago): hour(s) less than 1 Location: head Radiation: non-radiation Pain Consistency: + now resolved Associated symptoms: + denies other symptoms and + nausea/vomiting (nausea no vomiting); no chest pain, no fever/chills, no loss of appetite and no shortness of breath Treatments prior to arrival: other (Zofran) The patient is an 83 y/o male who presents to the emergency department via EMS from PCP office for evaluation of a now resolved syncopal episode that happened prior to arrival. The patient states that he was at his PCP for a regular appointment when he became sick to stomach and nauseated prior to passing out for 20 seconds in a chair. EMS notes that they gave the patient Zofran prior to arrival and the patient states that it has improved his nausea. The notes that the patient was not feeling well this morning and reported nausea though he did still eat breakfast. The family reports that in January the patient had a TAVR and since then has had intermittent nausea, which is worse in the mornings. The patient states that he has felt a little weak in the legs along with the nausea. He also report that he is on eliquis and has had some blood in his urine for some time which is now improving. The patient denies leg swelling, chest discomfort, shortness of breath, cold symptoms, fever, loss of appetite, bloody stool, vomiting, diarrhea, and any other symptoms. Home Medications Home Medications Medication Instructions Recorded Confirmed Type omeprazole 40 mg capsule,delayed 40 mg PO DAILY #90 cap 12/10/18 03/19/19 Rx release calcium carbonate 500 mg calcium 500 mg PO DAILY #90 tab 12/21/18 03/19/19 Rx (1,250 mg) tablet docusate sodium 100 mg capsule 100 mg PO DAILY #90 cap 12/21/18 03/19/19 Rx finasteride 5 mg tablet 5 mg PO DAILY #90 tab 12/21/18 03/19/19 Rx metoprolol tartrate 25 mg tablet 25 mg PO BID #180 tab 12/21/18 03/19/19 Rx Eliquis 5 mg PO BID 12/24/18 03/19/19 History atorvastatin 20 mg PO QPM 12/24/18 03/19/19 History loratadine [Claritin] 10 mg PO DAILY PRN 12/24/18 03/19/19 History aspirin 81 mg tablet,delayed 81 mg PO DAILY #30 tab 01/21/19 03/19/19 Rx release amlodipine 10 mg tablet 10 mg PO DAILY 03/02/19 03/19/19 History sertraline 25 mg tablet 25 mg PO DAILY #30 tab 03/03/19 03/19/19 Rx acetaminophen [Acetaminophen Extra 1,000 mg PO TID PRN 03/19/19 03/19/19 History Strength] Allergies Allergy/AdvReac Type Severity Reaction Status Date / Time lisinopril AdvReac Mild DIZZINESS Verified 03/19/19 07:56 silodosin [From Rapaflo] AdvReac NAUSEA Verified 03/19/19 07:56 tamsulosin AdvReac Verified 03/19/19 07:56 Past Med/Surg History Medical History Atrial fibrillation Surgical History History of blepharoplasty History of colonoscopy History of hemorrhoidectomy History of hernia repair 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 H Family History Father Coronary heart disease Myocardial infarction Sister Breast cancer Social History Preferred Language: Icelandic Communication Ability: Effective Visual Impairment: Limited Hearing Ability: Normal Banana Handler Required: No Beliefs That Will Affect Care: None marital status: Current Living Situation: Spouse current occupational status: retired Other Information That Helps Us Care for You: No Feels Safe at Home: Yes Safety Concerns: Feels Safe At This Time Smoking Status: Never smoker Second Hand Exposure: No ; Hx Alcohol Use: No Hx Substance Use: No Childhood Exposure to Second-Hand Smoke: No caffeine: No Dental Care, Regularly: No Physical Activity Frequency: Daily Seatbelt Use: always Sunscreen Use: No Review of Systems See HPI for pertinent positives & negatives. and A total of 10 systems reviewed and were otherwise negative Physical Exam Vital Signs Vital Signs - 24 hr 03/19/19 09:37 03/19/19 09:38 03/19/19 09:42 Temperature 36.3 C L Temperature Source Oral Sepsis Recent Fever Within 48 Hours No Sepsis New/Unexplained Change in Mental Status No Sepsis Action Taken by Nursing No Action Required Pulse Rate - Lying Pulse Rate - Sitting Pulse Rate - Standing Pulse Rate 72 75 67 Pulse Rate from SpO2 Sensor 76 65 Respiratory Rate 20 28 H 25 H Respiratory Effort / Characteristics Non-Labored Spontaneous Respiratory Depth Normal Respiratory Pattern Regular Blood Pressure - Lying Blood Pressure - Sitting Blood Pressure- Standing Blood Pressure 144/73 H 144/73 H Blood Pressure Mean 96 96 Pulse Oximetry 92 93 93 Oxygen Delivery Method Room Air Oxygen Flow Rate 03/19/19 10:00 03/19/19 10:06 03/19/19 10:16 Temperature Temperature Source Sepsis Recent Fever Within 48 Hours Sepsis New/Unexplained Change in Mental Status Sepsis Action Taken by Nursing Pulse Rate - Lying 69 Pulse Rate - Sitting 72 Pulse Rate - Standing 78 Pulse Rate 67 66 83 Pulse Rate from SpO2 Sensor 66 74 Respiratory Rate 27 H 20 26 H Respiratory Effort / Characteristics Respiratory Depth Respiratory Pattern Blood Pressure - Lying 141/70 H Blood Pressure - Sitting 122/76 Blood Pressure- Standing 146/126 H Blood Pressure 132/77 141/70 H Blood Pressure Mean 95 93 Pulse Oximetry 91 92 92 Oxygen Delivery Method Nasal Cannula Oxygen Flow Rate 2 03/19/19 10:17 03/19/19 10:19 03/19/19 10:30 Temperature Temperature Source Sepsis Recent Fever Within 48 Hours Sepsis New/Unexplained Change in Mental Status Sepsis Action Taken by Nursing Pulse Rate - Lying Pulse Rate - Sitting Pulse Rate - Standing Pulse Rate 71 64 Pulse Rate from SpO2 Sensor 59 L Respiratory Rate 24 20 Respiratory Effort / Characteristics Respiratory Depth Respiratory Pattern Blood Pressure - Lying Blood Pressure - Sitting Blood Pressure- Standing Blood Pressure 122/76 146/126 H 151/80 H Blood Pressure Mean 91 132 103 Pulse Oximetry 95 95 Oxygen Delivery Method Nasal Cannula Oxygen Flow Rate 2.5 03/19/19 11:00 03/19/19 11:30 03/19/19 11:42 Temperature Temperature Source Sepsis Recent Fever Within 48 Hours Sepsis New/Unexplained Change in Mental Status Sepsis Action Taken by Nursing Pulse Rate - Lying Pulse Rate - Sitting Pulse Rate - Standing Pulse Rate 67 76 83 Pulse Rate from SpO2 Sensor 69 79 89 Respiratory Rate 23 23 17 Respiratory Effort / Characteristics Respiratory Depth Respiratory Pattern Blood Pressure - Lying Blood Pressure - Sitting Blood Pressure- Standing Blood Pressure 148/83 H 154/72 H 154/72 H Blood Pressure Mean 104 99 99 Pulse Oximetry 93 95 95 Oxygen Delivery Method Nasal Cannula Nasal Cannula Nasal Cannula Oxygen Flow Rate 2.5 2.5 2.5 03/19/19 12:00 Temperature Temperature Source Sepsis Recent Fever Within 48 Hours Sepsis New/Unexplained Change in Mental Status Sepsis Action Taken by Nursing Pulse Rate - Lying Pulse Rate - Sitting Pulse Rate - Standing Pulse Rate 74 Pulse Rate from SpO2 Sensor 72 Respiratory Rate 25 H Respiratory Effort / Characteristics Respiratory Depth Respiratory Pattern Blood Pressure - Lying Blood Pressure - Sitting Blood Pressure- Standing Blood Pressure 153/82 H Blood Pressure Mean 105 Pulse Oximetry 92 Oxygen Delivery Method Nasal Cannula Oxygen Flow Rate 2.5 Constitutional: Vital signs reviewed. Eyes: Pupils are equal round reactive to light. Conjunctiva are noninjected. ENT: Pharynx is clear without erythema or exudate. Mucous membranes are moist. Neck supple without meningeal signs. Respiratory: Clear to auscultation bilaterally. Breath sounds are equal igor aterally. Cardiovascular: Regular rate and rhythm. No rubs or gallops. No carotid bruits. GI: Soft, nondistended and nontender. Bowel sounds are present. Musculoskeletal: No peripheral edema. No lower extremity tenderness. Integumentary: No cyanosis. Neurological: The patient is awake and alert. No focal deficits. Psychiatric: Normal affect. Course 0941: Past medical records reviewed. The patient was evaluated in room B12B. A complete history and physical exam was performed. 1103: I spoke [place]. Raines- [place] [facility] is doing a Cath right now but he agrees with an echo cardiogram. 1110: I checked on the patient and updated him and his family on his current test results. 1120: I spoke with Dr. Francis- Hospitalist [facility] He will evaluate for further management. 1145: Echo cardiogram preformed, wait cardiology read. [facility] team evaluating. Administered Medications Lactated Ringer's (Lr) 1,000 mls @ 80 mls/hr IV .[id number] AAD Stop: 04/18/19 14:07 Last Admin: 03/19/19 14:30 Dose: 80 mls/hr Documented by: [id number] Magnesium Sulfate/Dextrose (Magnesium Sulfate / D5w) 1 gm in 100 mls @ 100 mls/hr IV ONE ONE Stop: 03/19/19 15:29 Last Admin: 03/19/19 14:28 Dose: 100 mls/hr Documented by: [id number] Medical Decision Making Differential Diagnosis Differential Diagnosis: vasovagal syncope, orthostatic hypertension, dehydration, anemia, GI bleed, cardiac infection. Medical Records Attestation: I reviewed the patient's medical records. Patient was seen in PCP office prior to arrival to the ED. Reviewed prior Cath report and the patient has severe right RCA disease Home Medications Current Medication List: was personally reviewed by me Laboratory Data Attestation: I reviewed the patient's lab results. Result diagrams: 03/19/19 09:58 03/19/19 10:48 Lab Results 03/19/19 03/19/19 03/19/19 Range/Units 09:58 09:58 10:14 WBC 9.82 (4.8-10.8) K/uL RBC 4.53 L (4.7-6.1) M/uL Hgb 14.7 (14.0-18.0) g/dL Hct 41.2 L (42-52) % MCV 90.9 (80-100) fL MCH 32.5 (25-34) pg MCHC 35.7 (32-36) g/dL RDW Std Deviation 43.1 (36.4-46.3) fL RDW Coeff of Manju 12.9 (11.5-14.5) % Plt Count 192 (130-400) K/uL MPV 10.7 H (7.4-10.4) fL Immature Gran % (Auto) 0.3 % Neut % (Auto) 71.5 % Lymph % (Auto) 16.8 % [place] % (Auto) 7.7 % Eos % (Auto) 2.9 % Baso % (Auto) 0.8 % Immature Gran # (Auto) 0.03 H (0.00-0.02) K/uL Neut # (Auto) 7.02 H (1.4-6.5) K/uL Lymph # (Auto) 1.65 (1.2-3.4) K/uL [place] # (Auto) 0.76 H (0.11-0.59) K/uL Eos # (Auto) 0.28 (0-0.5) K/uL Baso # (Auto) 0.08 (0-0.2) K/uL PT (9.0-12.0) Seconds INR (0.9-1.1) APTT (21.0-31.0) Seconds PTT Ratio Sodium 134 L (136-145) mmol/L Potassium (3.5-5.1) mmol/L Chloride 104 (98-107) mmol/L Carbon Dioxide 24 (21-32) mmol/L Anion Gap 5.0 (3-11) BUN 17 (7-18) mg/dl Creatinine 1.03 (0.6-1.4) mg/dl Est Cr Clr Drug Dosing 47.3 ml/min Est GFR ( Amer) 76.4 Est GFR (Non-Af Amer) 65.9 BUN/Creatinine Ratio 16.1 (10-20) Glucose 109 H (70-99) mg/dl POC Glucose 107 H (70-99) Calcium 8.7 (8.5-10.1) mg/dl Magnesium (1.8-2.4) mg/dl Total Bilirubin 0.6 (0.2-1) mg/dl AST (15-37) U/L ALT 24 (12-78) U/L Alkaline Phosphatase 36 L (45-117) U/L Troponin I 0.395 H* (0-0.045) ng/ml Total Protein 7.4 (6.4-8.2) gm/dl Albumin 3.4 (3.4-5.0) gm/dl Globulin 4.0 (2.5-4.0) gm/dl Albumin/Globulin Ratio 0.8 L (0.9-2) TSH 1.610 (0.300-4.500) uIu/ml Urine Color Urine Appearance (Clear) Urine pH (4.5-7.5) Ur Specific [place] (1.000-1.030) Urine Protein (Negative) Urine Glucose (UA) (Negative) Urine Ketones (Negative) Urine Blood (Negative) Urine Nitrite (Negative) Urine Bilirubin (Negative) Urine Urobilinogen (Negative) Ur Leukocyte Esterase (Negative) Urine WBC (Auto) (0-5) /hpf Urine RBC (Auto) (0-4) /hpf U Hyaline Cast (Auto) (0-5) /lpf U Epithel Cells (Auto) (0-5) /lpf Urine Bacteria (Auto) (Negative) 03/19/19 03/19/19 03/19/19 Range/Units 10:25 10:48 10:48 WBC (4.8-10.8) K/uL RBC (4.7-6.1) M/uL Hgb (14.0-18.0) g/dL Hct (42-52) % MCV (80-100) fL MCH (25-34) pg MCHC (32-36) g/dL RDW Std Deviation (36.4-46.3) fL RDW Coeff of Manju (11.5-14.5) % Plt Count (130-400) K/uL MPV (7.4-10.4) fL Immature Gran % (Auto) % Neut % (Auto) % Lymph % (Auto) % [place] % (Auto) % Eos % (Auto) % Baso % (Auto) % Immature Gran # (Auto) (0.00-0.02) K/uL Neut # (Auto) (1.4-6.5) K/uL Lymph # (Auto) (1.2-3.4) K/uL [place] # (Auto) (0.11-0.59) K/uL Eos # (Auto) (0-0.5) K/uL Baso # (Auto) (0-0.2) K/uL PT 10.9 (9.0-12.0) Seconds INR 1.1 (0.9-1.1) APTT 27.7 (21.0-31.0) Seconds PTT Ratio 1.0 Sodium (136-145) mmol/L Potassium 4.3 (3.5-5.1) mmol/L Chloride (98-107) mmol/L Carbon Dioxide (21-32) mmol/L Anion Gap (3-11) BUN (7-18) mg/dl Creatinine (0.6-1.4) mg/dl Est Cr Clr Drug Dosing ml/min Est GFR ( Amer) Est GFR (Non-Af Amer) BUN/Creatinine Ratio (10-20) Glucose (70-99) mg/dl POC Glucose (70-99) Calcium (8.5-10.1) mg/dl Magnesium 1.8 (1.8-2.4) mg/dl Total Bilirubin (0.2-1) mg/dl AST 15 (15-37) U/L ALT (12-78) U/L Alkaline Phosphatase (45-117) U/L Troponin I (0-0.045) ng/ml Total Protein (6.4-8.2) gm/dl Albumin (3.4-5.0) gm/dl Globulin (2.5-4.0) gm/dl Albumin/Globulin Ratio (0.9-2) TSH (0.300-4.500) uIu/ml Urine Color [place] Urine Appearance Cloudy A (Clear) Urine pH 6.0 (4.5-7.5) Ur Specific [place] 1.017 (1.000-1.030) Urine Protein Trace H (Negative) Urine Glucose (UA) Negative (Negative) Urine Ketones Negative (Negative) Urine Blood 3+ H (Negative) Urine Nitrite Negative (Negative) Urine Bilirubin Negative (Negative) Urine Urobilinogen Negative (Negative) Ur Leukocyte Esterase 1+ H (Negative) Urine WBC (Auto) 1-5 (0-5) /hpf Urine RBC (Auto) >30 H (0-4) /hpf U Hyaline Cast (Auto) 1-5 (0-5) /lpf U Epithel Cells (Auto) 5-10 H (0-5) /lpf Urine Bacteria (Auto) Negative (Negative) Imaging Data Radiologist's Impression: Radiology results as stated below per my review and the radiologist's interpretation: XR chest 1V portable HISTORY: 83 years-old Male syncope eval for pna acute syncope COMPARISON: Chest radiograph 12/25/2018 TECHNIQUE: Portable AP view of the chest FINDINGS: Cardiac silhouette is enlarged, unchanged. Calcified plaque the thoracic arch. Mild pulmonary vascular congestion with chronic interstitial coarsening. No pneumothorax, large pleural effusion or lobar airspace consolidation. Unchanged patchy bibasilar opacities. Ovoid calcified structures of the abdominal left upper quadrant appear unchanged. Degenerative changes of the shoulders and spine. IMPRESSION: 1. Cardiomegaly with chronic interstitial coarsening. 2. Minimal bibasilar opacities suggest atelectasis. The above report was generated using voice recognition software. It may contain grammatical, syntax or spelling errors. Electronically signed by: Mc Roy M.D. 03/19/2019 10:57 AM ECG Data Attestation: I personally reviewed and interpreted this ECG as follows: Indication: syncope Rate (beats per minute): 67 Rhythm: atrial fibrillation Findings: + other (left anterior fascicular block); no PVC and no ST elevation Comparison ECG Date: from (11/06/17) Change: no significant change Additional Comments: Repeat done at 1110 Atrial Fibrillation with a rate of 76 left anterior fascicular block PVC noted No ST elevation No change from prior Blood Pressure Blood Pressure Findings: Elevated blood pressure Blood Pressure Disposition: Referred to patients primary care provider MDM Narrative I did evaluate the patient as noted above. The patient is presenting with a syncopal episode today. Patient was nauseous when he woke up this morning but has had various bouts of episodes since his TAVR in January. Currently he complains of feeling weak but denies any other symptoms such as chest discomfort or shortness of breath or palpitations. The patient did not fall to the ground when he passed out. He was seated in a chair with his family surrounding him when he passed out. The patient was placed on a continuous conveyor monitor. I did order and personally review the patient's 12-lead EKG as described above. His twelve-lead EKG does not show any acute ischemic changes or signs of STEMI. I did order and personally reviewed the images of the patient's chest x-ray as described above. He has some cardiomegaly. I did order and review the patient's blood work as noted in the electronic medical record. His CBC is unremarkable. Electrolytes are unremarkable as well. His troponin is elevated. I did reassess the patient. He continues to deny any chest pain or shortness of breath. I did repeat a twelve-lead EKG which continues to show atrial fibrillation without any acute ischemia. I did discuss the case with Dr. Raines of cardiology and ordered an echocardiogram. I did discuss the test results with the patient and recommended hospitalization. I did discuss case with the hospitalist and casework specialist. Impression & Plan Syncope, Anticoagulated, Elevated troponin, CAD (coronary artery disease) Discharge Plan Visit Data *Final* Discharge Date/Time: 03/19/19 13:45 Chief Complaint: Syncope (Near Syncope) Stated Complaint: syncope ED Provider: Heber French Discharge Problem: Syncope, Anticoagulated, Elevated troponin, CAD (coronary artery disease) Patient Disposition: Admitted As Inpatient Discharge Instructions Interventions: ED Discharge Assessment Last Done: 03/19/19 13:45 Discharge Problem: Syncope Qualifiers: Syncope type: unspecified Qualified Code(s): R55 - Syncope and collapse CAD (coronary artery disease) Qualifiers: Coronary Disease-Associated Artery/Lesion type: unspecified vessel or lesion type [place] vs. transplanted heart: enterprise heart Associated angina: angina presence unspecified Qualified Code(s): I25.10 - Atherosclerotic heart disease of enterprise coronary artery without angina pectoris The scribe's documentation has been prepared under my direction and personally reviewed by me in its entirety. I confirm that the note above accurately reflects all work, treatment, procedures, and medical decision making performed by me.
[2019-03-19] MEDS: cefTRIAXone SODIUM 1,000 MG in DEXTROSE 5% 50 ML IV SCH (15:57)
--- NOTE | 2019-03-19 19:00 | Cardiology Consultation ---
Date of Consultation March 19, 2019 Assessment & Plan (1) CAD (coronary artery disease): (2) Syncope: (3) Elevated troponin: (4) Status post transcatheter aortic valve replacement (TAVR) using bioprosthesis: (5) Severe aortic stenosis: (6) Atrial fibrillation, permanent: ASSESSMENT/PLAN: 1. Syncope: Could be vasovagal. It sounds as though he is having vertigo described as a spinning sensation that then precipitates nausea. This could be causing a vasovagal type response. Would like to rule out pauses or ventricular arrhythmia. Continue telemetry. Trend troponin levels. Recommend carotid duplex. He did have borderline positive orthostatic blood pressure when going from a supine to sitting position while in the ER today. He does not appear to be hypervolemic on exam. Consider support stockings. Consider reducing amlodipine. 2. Lightheadedness/dizziness: Consider meclizine or physical therapy. As per primary service. 3. Aortic stenosis status post TAVR: Appropriate gradients on echo. No significant pericardial effusion. SBE prophylaxis for dental procedures. 4. Elevated troponin: He does have severe CAD involving the RCA but did not present with acute coronary syndrome or angina. With his syncopal event, he was likely hypotensive, which could precipitate elevated troponin in the setting of severe CAD. 5. CAD: Continue aspirin, beta-ashely, and statin therapy. No angina. Trend troponin levels. 6. Atrial fibrillation: Permanent atrial fibrillation per records. Continue anticoagulation for stroke risk reduction. Heart rate is adequately controlled. Continue telemetry as above her syncopal event. Continue low-dose beta-ashely . 7. Disposition: I will be away from the hospital tomorrow. Dr. Lerma will be covering. Follow-up with Dr. Cortez as an outpatient. Plan of care communicated with Dr. Buck of the primary hospitalist service. 45 minutes spent, with greater than 50% time spent counseling patient and coordinating care. Other time spent reviewing records. History of Present Illness Reason for Consultation: Syncope s/p TAVR Requesting Physician: Dr. Rhoades Attending Physician: Juan Buck, History of Present Illness Mr. Fontenot is a pleasant 83-year-old gentleman with history significant for severe aortic stenosis s/p [place] [facility] CAD, COPD, chronic atrial fibrillation on anticoagulation therapy, dyslipidemia, hypertension, and vertigo. His primary building attendant is Dr. Cortez. He underwent cardiac catheterization on 12/25/2018 demonstrating severe proximal to mid RCA stenosis, but otherwise nonobstructive CAD. He underwent TAVR on 01/05/2019 [place] [facility] for severe aortic stenosis. He has since been seen by his primary building attendant, Dr. Cortez, on 03/13/2019. He was at his PCPs office today and had a syncopal event. He was sitting on the exam table for many minutes before he developed lightheadedness/dizziness as though the room was spinning. He then went from the exam table to the chair and while sitting lost consciousness for an estimated 20 seconds. Following the event, he noticed nausea, but no vomiting. He denied any chest pain, shortness of breath, palpitations. He states that he has been having issues like this for some time and had been taking meclizine at times which helps resolve the dizziness. He recalls being told to discontinue meclizine however and therefore has not been taking as often. He did use it just the other day and afterwards, he felt much better and was able to work outside the next day. He currently feels well without symptoms. He admits that symptoms tend to occur more so in the mornings. He has been having hematuria and was diagnosed with UTI approximately 2 weeks ago for which he was prescribed Macrobid but he did not finish the prescription. He still has hematuria but believes it is improving. No fevers or chills. He currently denies chest pain, dizziness, shortness of breath. He denies edema, hematochezia, melena, or other bleeding. He is hungry. Review of systems: As above. Review of systems otherwise negative/unremarkable. Family history: Father had [place]. Social history: Denies tobacco or alcohol abuse. He is . His and daughter present at the bedside. He had 5 children. Eleven grandchildren. Fourteen great grandchildren. Allergies Allergy/AdvReac Type Severity Reaction Status Date / Time lisinopril AdvReac Mild DIZZINESS Verified 03/19/19 07:56 silodosin [From Rapaflo] AdvReac NAUSEA Verified 03/19/19 07:56 tamsulosin AdvReac Verified 03/19/19 07:56 Home Medications Home Medications Medication Instructions Recorded Confirmed Type omeprazole 40 mg capsule,delayed 40 mg PO DAILY #90 cap 12/10/18 03/19/19 Rx release calcium carbonate 500 mg calcium 500 mg PO DAILY #90 tab 12/21/18 03/19/19 Rx (1,250 mg) tablet docusate sodium 100 mg capsule 100 mg PO DAILY #90 cap 12/21/18 03/19/19 Rx finasteride 5 mg tablet 5 mg PO DAILY #90 tab 12/21/18 03/19/19 Rx metoprolol tartrate 25 mg tablet 25 mg PO BID #180 tab 12/21/18 03/19/19 Rx Eliquis 5 mg PO BID 12/24/18 03/19/19 History atorvastatin 20 mg PO QPM 12/24/18 03/19/19 History loratadine [Claritin] 10 mg PO DAILY PRN 12/24/18 03/19/19 History aspirin 81 mg tablet,delayed 81 mg PO DAILY #30 tab 01/21/19 03/19/19 Rx release amlodipine 10 mg tablet 10 mg PO DAILY 03/02/19 03/19/19 History sertraline 25 mg tablet 25 mg PO DAILY #30 tab 03/03/19 03/19/19 Rx acetaminophen [Acetaminophen Extra 1,000 mg PO TID PRN 03/19/19 03/19/19 History Strength] Patient History Medical History Atrial fibrillation Surgical History History of blepharoplasty History of colonoscopy History of hemorrhoidectomy History of hernia repair 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 [facility] Family History Father Coronary heart disease Myocardial infarction Sister Breast cancer Social History Preferred Language: Estonian Communication Ability: Effective Visual Impairment: Limited Hearing Ability: Normal Chemical Maker Required: No Beliefs That Will Affect Care: None marital status: Current Living Situation: Spouse current occupational status: retired Other Information That Helps Us Care for You: No Feels Safe at Home: Yes Safety Concerns: Feels Safe At This Time Smoking Status: Never smoker Second Hand Exposure: No ; Hx Alcohol Use: No Hx Substance Use: No Childhood Exposure to Second-Hand Smoke: No caffeine: No Dental Care, Regularly: No Physical Activity Frequency: Daily Seatbelt Use: always Sunscreen Use: No Physical Exam Physical Exam: Gen.: No acute distress. Alert and oriented. HEENT: Anicteric sclera. Neck: No JVD. No bruits. Normal carotid upstrokes bilaterally. Cardiac: PMI was nondisplaced. No ventricular heave. Irregularly irregular. Normal S1-S2. 1/6 systolic ejection murmur. No rubs, or gallops. Pulmonary: Bibasilar crackles, otherwise clear bilaterally. Abdomen: Soft, nontender, nondistended, with normoactive bowel sounds. No bruits noted. Extremities: 2+ radial pulses bilaterally. 2+ posterior tibialis pulses bilaterally. No edema or cyanosis. No palpable cords. Psychiatric: Affect appears appropriate. Results & Data Vital Signs (Past 12 Hours) Vital Signs Temp Pulse Pulse Resp BP BP Pulse Ox 03/19/19 15:48 36.8 C 67 20 146/80 H 95 03/19/19 13:30 79 27 H 151/89 H 90 03/19/19 13:00 77 22 151/92 H 92 03/19/19 12:30 70 25 H 157/89 H 91 03/19/19 12:00 74 25 H 153/82 H 92 03/19/19 11:42 83 17 154/72 H 95 03/19/19 11:30 76 23 154/72 H 95 03/19/19 11:00 67 23 148/83 H 93 03/19/19 10:30 64 20 151/80 H 95 03/19/19 10:19 146/126 H 95 03/19/19 10:17 71 24 122/76 03/19/19 10:16 83 26 H 141/70 H 92 03/19/19 10:06 66 20 92 03/19/19 10:00 67 27 H 132/77 91 03/19/19 09:42 67 25 H 93 03/19/19 09:38 75 28 H 144/73 H 93 03/19/19 09:37 36.3 C L 72 20 144/73 H 92 Laboratory Results Laboratory Results - last 24 hr 03/19/19 03/19/19 03/19/19 09:58 09:58 10:14 WBC 9.82 RBC 4.53 L Hgb 14.7 Hct 41.2 L MCV 90.9 MCH 32.5 MCHC 35.7 RDW Std Deviation 43.1 RDW Coeff of Manju 12.9 Plt Count 192 MPV 10.7 H Immature Gran % (Auto) 0.3 Neut % (Auto) 71.5 Lymph % (Auto) 16.8 [place] % (Auto) 7.7 Eos % (Auto) 2.9 Baso % (Auto) 0.8 Immature Gran # (Auto) 0.03 H Neut # (Auto) 7.02 H Lymph # (Auto) 1.65 [place] # (Auto) 0.76 H Eos # (Auto) 0.28 Baso # (Auto) 0.08 PT INR APTT PTT Ratio Sodium 134 L Potassium Chloride 104 Carbon Dioxide 24 Anion Gap 5.0 BUN 17 Creatinine 1.03 Est Cr Clr Drug Dosing 47.3 Est GFR ( Amer) 76.4 Est GFR (Non-Af Amer) 65.9 BUN/Creatinine Ratio 16.1 Glucose 109 H POC Glucose 107 H Calcium 8.7 Magnesium Total Bilirubin 0.6 AST ALT 24 Alkaline Phosphatase 36 L Troponin I 0.395 H* Total Protein 7.4 Albumin 3.4 Globulin 4.0 Albumin/Globulin Ratio 0.8 L TSH 1.610 Urine Color Urine Appearance Urine pH Ur Specific [place] Urine Protein Urine Glucose (UA) Urine Ketones Urine Blood Urine Nitrite Urine Bilirubin Urine Urobilinogen Ur Leukocyte Esterase Urine WBC (Auto) Urine RBC (Auto) U Hyaline Cast (Auto) U Epithel Cells (Auto) Urine Bacteria (Auto) 03/19/19 03/19/19 03/19/19 10:25 10:48 10:48 WBC RBC Hgb Hct MCV MCH MCHC RDW Std Deviation RDW Coeff of Manju Plt Count MPV Immature Gran % (Auto) Neut % (Auto) Lymph % (Auto) [place] % (Auto) Eos % (Auto) Baso % (Auto) Immature Gran # (Auto) Neut # (Auto) Lymph # (Auto) [place] # (Auto) Eos # (Auto) Baso # (Auto) PT 10.9 INR 1.1 APTT 27.7 PTT Ratio 1.0 Sodium Potassium 4.3 Chloride Carbon Dioxide Anion Gap BUN Creatinine Est Cr Clr Drug Dosing Est GFR ( Amer) Est GFR (Non-Af Amer) BUN/Creatinine Ratio Glucose POC Glucose Calcium Magnesium 1.8 Total Bilirubin AST 15 ALT Alkaline Phosphatase Troponin I Total Protein Albumin Globulin Albumin/Globulin Ratio TSH Urine Color [place] Urine Appearance Cloudy A Urine pH 6.0 Ur Specific [place] 1.017 Urine Protein Trace H Urine Glucose (UA) Negative Urine Ketones Negative Urine Blood 3+ H Urine Nitrite Negative Urine Bilirubin Negative Urine Urobilinogen Negative Ur Leukocyte Esterase 1+ H Urine WBC (Auto) 1-5 Urine RBC (Auto) >30 H U Hyaline Cast (Auto) 1-5 U Epithel Cells (Auto) 5-10 H Urine Bacteria (Auto) Negative 03/19/19 15:51 WBC RBC Hgb Hct MCV MCH MCHC RDW Std Deviation RDW Coeff of Manju Plt Count MPV Immature Gran % (Auto) Neut % (Auto) Lymph % (Auto) [place] % (Auto) Eos % (Auto) Baso % (Auto) Immature Gran # (Auto) Neut # (Auto) Lymph # (Auto) [place] # (Auto) Eos # (Auto) Baso # (Auto) PT INR APTT PTT Ratio Sodium Potassium Chloride Carbon Dioxide Anion Gap BUN Creatinine Est Cr Clr Drug Dosing Est GFR ( Amer) Est GFR (Non-Af Amer) BUN/Creatinine Ratio Glucose POC Glucose Calcium Magnesium Total Bilirubin AST ALT Alkaline Phosphatase Troponin I 0.381 H* Total Protein Albumin Globulin Albumin/Globulin Ratio TSH Urine Color Urine Appearance Urine pH Ur Specific [place] Urine Protein Urine Glucose (UA) Urine Ketones Urine Blood Urine Nitrite Urine Bilirubin Urine Urobilinogen Ur Leukocyte Esterase Urine WBC (Auto) Urine RBC (Auto) U Hyaline Cast (Auto) U Epithel Cells (Auto) Urine Bacteria (Auto) Diagnostic Findings Telemetry personally reviewed: Atrial fibrillation. ECG personally reviewed: ECG 03/19/2019 at 9:41 a.m.: AFib 67 bpm.LAFB. Possible inferior infarct. Nonspecific T-wave abnormality. Echo 03/19/2019: Normal LV size, wall motion, systolic function. EF 60-65%. Severe asymmetric hypertrophy involving the basal septum, otherwise moderate concentric LVH. Dilated RV with normal systolic function. Severe left atrial dilation. Mild right atrial dilation. Bioprosthetic aortic valve with acceptable transvalvular gradient/velocity. Trace aortic regurgitation. Mild MR. Moderate TR. RVSP 46. Chest x-ray 03/19/2019: Chronic interstitial coarsening. Minimal bibasilar opacity suggest atelectasis per Radiology. Medications Administered Current Inpatient Medications Acetaminophen (Tylenol) 1,000 mg PO TID PRN PRN Reason: Pain Stop: 04/18/19 14:07 Amlodipine Besylate (Norvasc) 10 mg PO DAILY ADA Stop: 04/19/19 08:59 Apixaban (Eliquis) 5 mg PO BID ADA Stop: 04/18/19 20:59 Aspirin (Ecotrin Ectab) 81 mg PO DAILY ADA Stop: 04/19/19 08:59 Atorvastatin Calcium (Lipitor) 20 mg PO QPM ADA Stop: 04/18/19 20:59 Calcium Carbonate (Os-Javier 500) 1,250 mg PO DAILY ADA Stop: 04/19/19 08:59 Docusate Sodium (Colace) 100 mg PO DAILY ADA Stop: 04/19/19 08:59 Finasteride (Proscar) 5 mg PO DAILY ADA Stop: 04/19/19 08:59 Lactated Ringer's (Lr) 1,000 mls @ 80 mls/hr IV .[id number] ADA Stop: 04/18/19 14:07 Last Admin: 03/19/19 14:30 Dose: 80 mls/hr Documented by: Ceftriaxone Sodium 1,000 mg/ (Dextrose) 50 mls @ 100 mls/hr IV DAILY@1500 ADA; Protocol Stop: 03/24/19 15:29 Last Infusion: 03/19/19 16:37 Dose: Infused Documented by: Loratadine (Claritin) 10 mg PO DAILY PRN PRN Reason: Allergy Symptoms Stop: 04/18/19 14:07 Metoprolol Tartrate (Lopressor) 25 mg PO BID [facility] Stop: 04/18/19 20:59 Ondansetron HCl (Zofran) 4 mg IV Q6H PRN PRN Reason: Nausea Stop: 04/18/19 14:07 Pantoprazole Sodium (Protonix) 40 mg PO DAILY ADA Stop: 04/19/19 08:59 Sertraline HCl (Zoloft) 25 mg PO DAILY [facility] Stop: 04/19/19 08:59 PG Care Time/CCT Total # of Minutes Spent Total Time Spent with Patient: Total time spent is greater than 50% in coordination of care (as documented) at patient's floor/unit and/or counseling patient: (1) CAD (coronary artery disease) Associated angina: angina presence unspecified Coronary Disease-Associated Artery/Lesion type: unspecified vessel or lesion type [place] vs. transplanted heart: [place] heart Qualified Code(s): I25.10 - Atherosclerotic heart disease of [place] coronary artery without angina pectoris (2) Syncope Syncope type: unspecified Qualified Code(s): R55 - Syncope and collapse
[2019-03-19] MEDS: METOPROLOL TARTRATE 25 MG TAB PO SCH (19:57)
[2019-03-19] MEDS: APIXABAN 5 MG TABLET PO SCH (19:57)
[2019-03-19] MEDS: MECLIZINE HCL 25 MG TAB PO PRN (20:52)
[2019-03-19] MEDS ORDERED: ATORVASTATIN 20 MG TAB PO SCH (21:00)
[2019-03-20] MEDS: LACTATED RINGER'S 1,000 ML IV SCH (03:13)
[2019-03-20 04:46] LABS: Basophils # (auto) 0.04 K/uL (0-0.2); Basophils % (auto) 0.6 %; Eosinophils % (auto) 5.7 %; Hematocrit (blood only) 39.8 % (42-52); Immature Granulocytes # (auto) 0.01 K/uL (0.00-0.02); Immature Granulocytes % (auto) 0.1 %; Lymphocytes # (auto) 1.92 K/uL (1.2-3.4); Lymphocytes % (auto) 27.2 %; Mean Corpuscular Hemoglobin 32.2 pg (25-34); Mean Corpuscular Hgb Conc 35.2 g/dL (32-36); Mean Corpuscular Volume 91.5 fL (80-100); Mean Platelet Volume 10.3 fL (7.4-10.4); Monocytes # (auto) 0.79 K/uL (0.11-0.59); Monocytes % (auto) 11.2 %; Neutrophils # (auto) 3.89 K/uL (1.4-6.5); Neutrophils % (auto) 55.2 %; Platelet Count 170 K/uL (130-400); RDW Coefficient of Variation 12.9 % (11.5-14.5); RDW Standard Deviation 43.3 fL (36.4-46.3); Red Blood Count 4.35 M/uL (4.7-6.1); White Blood Count 7.05 K/uL (4.8-10.8)
[2019-03-20 05:11] LABS: BUN Creatinine Ratio 11.9 (10-20); Calcium 8.4 mg/dl (8.5-10.1); Creatinine Clr Calc Pharmacy 46.9 ml/min; Est GFR (African American) 75.5; Est GFR (Non-African American) 65.2; Potassium 4.1 mmol/L (3.5-5.1)
[2019-03-20 05:27] LABS: Troponin I 0.297 ng/ml (0-0.045)
[2019-03-20] MEDS: APIXABAN 5 MG TABLET PO SCH (07:51)
[2019-03-20] MEDS: METOPROLOL TARTRATE 25 MG TAB PO SCH (07:51)
[2019-03-20] MEDS: MECLIZINE HCL 25 MG TAB PO PRN (07:54)
[2019-03-20] MEDS ORDERED: PANTOprazole 40 MG TAB PO SCH (09:00)
[2019-03-20] MEDS ORDERED: FINASTERIDE 5 MG TAB PO SCH (09:00)
[2019-03-20] MEDS ORDERED: AMLODIPINE BESYLATE 5 MG TAB PO SCH (09:00)
[2019-03-20] MEDS ORDERED: CALCIUM CARBONATE 1250MG TAB PO SCH (09:00)
[2019-03-20] MEDS ORDERED: DOCUSATE SODIUM 100 MG CAP PO SCH (09:00)
[2019-03-20] MEDS ORDERED: ASPIRIN 81 MG ECTAB PO SCH (09:00)
[2019-03-20] MEDS ORDERED: SERTRALINE HCL 50 MG TABLET PO SCH (09:00)
--- NOTE | 2019-03-20 10:49 | Ultrasound Report ---
US carotid doppler BI HISTORY: Mental status change syncope COMPARISON: None. TECHNIQUE: Real-time, grayscale, and color Doppler sonography of the carotid arteries was performed. Imaging reviewed in the transverse and longitudinal planes. All measurements were calculated based on NASCET criteria. FINDINGS: Antegrade flow is seen in the bilateral vertebral arteries. The brachial pressures are hemodynamically similar. Mild plaque formation bilaterally The peak systolic velocity within the right ICA is 80. The right systolic ratio is 1.3. The peak systolic velocity within the left ICA is 42. The left systolic ratio is 2.9 Possible occlusion right vertebral artery. IMPRESSION: 1. No significant stenotic process of the carotid systems. 2. Mild plaque formation bilaterally. 3. Potential occlusion right vertebral artery. The above report was generated using voice recognition software. It may contain grammatical, syntax or spelling errors. Electronically signed by: Manan Hewitt M.D. 03/20/2019 10:48 AM
[2019-03-20] MEDS: cefTRIAXone SODIUM 1,000 MG in DEXTROSE 5% 50 ML IV SCH (12:27)
--- NOTE | 2019-03-21 08:42 | Discharge Summary ---
Date of Service March 20, 2019 Admission HPI Per Admitting Provider 83-year-old male with history of coronary artery disease, A. 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 Per patient and family he was at PCPs office for follow-up and felt lightheaded while on the exam table. Was transferred to a chair at which point he passed out for about 20 seconds. He then presented to the ED. Per patient he has been having episodes of lightheadedness, nausea and leg weakness on and off couple times a week since his TAVR in January. Most recently he reports an episode on Saturday of this week, 3 days ago. Yesterday however he felt better and also did some yard work. He denies any chest pain, shortness of breath, palpitations while he was doing yard work. Today however he was not feeling so great and had the episode at the doctor's office. He last saw his web press operator apprentice on 03/13/2019Dr. Cortez. During these episodes he denies any chest pain, palpitations, shortness of breath. Usually symptoms are worse in the evening. He also reports waking up a few times with lightheadedness at night. At this time he also reports a headache. Of note: Patient was recently diagnosed on 03/03/2019 with UTI and started on Macrobid, urine culture grew coag negative staph. He reports taking Macrobid for only about 3 days but stopped it because he was having blood in his urine which he continues to have. Denies any fever, chills, chest pain, shortness of breath, palpitations, abdominal pain, vomiting, diarrhea, constipation, dysuria or increased urinary frequency Principal Diagnosis Syncope Discharge Exam Constitutional WD/WN, vitals as above Eyes PERRL, conjunctivae normal, anicteric sclerae ENMT external ear and nose normal, oropharynx normal Neck trachea midline, no thyromegaly Respiratory normal respiratory effort, lungs clear to auscultation Cardiovascular RRR, no murmur, no edema Gastrointestinal (Abdomen) normal bowel sounds, soft, nontender, no hepatosplenomegaly Musculoskeletal no cyanosis or clubbing, extremities motor strength 5/5 Skin no rashes, warm and dry Neurologic patellar DTR's 2+ bilat, sensation intact and PERRL, EOMI, accommodation nl, no face palsy, no dysarthria Psychiatric A+Ox3, euthymic affect Lymphatic no cervical or axillary lymphadenopathy Discharge Data Allergies Allergy/AdvReac Type Severity Reaction Status Date / Time lisinopril AdvReac Mild DIZZINESS Verified 03/19/19 07:56 silodosin [From Rapaflo] AdvReac NAUSEA Verified 03/19/19 07:56 tamsulosin AdvReac Verified 03/19/19 07:56 Consultations 03/19/19 11:11 ED Decision to Admit Stat 03/19/19 14:08 Consult Cardiology Routine Ordered Studies 03/20/19 00:00 US carotid doppler Routine Hospital Course (1) BPPV (benign paroxysmal positional vertigo): has symptoms of vertigo positive turning head to left and going backward treated with vestibular therapy by PT, they recommend getting repeat treatment outpatient no neurological deficits, intact finger to nose, rapid alternating movements no hearing loss has been going on some time so would doubt vestibular neuritis use Meclizine PRN, follow up with PCP (2) Syncope: unclear etiology, he was seated at the time associated with vertigo, most likely BPPV carotid dopplers with 50% stenosis, but nothing severe echo with normal EF, no valve disease atrial fibrillation but no tachycardia or pauses seen on monitor no focal neurological deficits so stroke is doubtful continue to treat vertigo, stay well hydrated, get rest follow up with PCP (3) CAD (coronary artery disease): no evidence of acute SC continue antiplatelets, statin therapy (4) Status post transcatheter aortic valve replacement (TAVR) using bioprosthesis: echo shows that prosthetic valve in good position, functioning well EF is preserved (5) Atrial fibrillation, persistent: rates are well controlled, anticoagulated continue metoprolol and Eliquis (6) BPH with obstruction/lower urinary tract symptoms: (7) COPD with asthma: (8) GERD without esophagitis: (9) Hypercholesterolemia: (10) Benign essential hypertension: (11) WILLIE (obstructive sleep apnea): Total Time Total Time Spent Total Time Spent (In Minutes): 25 minutes Total Time Includes: Examination of the Patient, Discharge Planning, Medication Reconciliation and Communication With Other Providers Discharge Plan Discharge Items Patient Disposition: Home - Self-Care Reason For Visit: SYNCOPAL EPISODE Discharge Diagnosis: Syncope Vertigo, benign paroxysmal positional Condition on Discharge: Good Goals: improve independence follow up for more therapy for BPPV (vertigo) Activity: Per Instructions section Lifting: Gradually increase as tolerated Bathing: No limitations Exercise/Sports: Gradually increase as tolerated Non-emergency contact: Primary Care Provider Call non-emergency contact if: you have any medication questions, your symptoms worsen and you have a fever Follow-up/Referrals: Kevin Minaya MD [Primary Care Provider] - 03/25/19 9:30 am (Please, follow up at Dr. Minaya's office on SaturdayMarch 25 at 9:30 pm. *If you need to change this appointment, call the office at [phone].) Diet: Heart Healthy Addtl Attending Provider Instructions: Medications: - MECLIZINE: use only as needed for vertigo symptoms, can use every 8 hours Syncope, vertigo no evidence of arrhythmias on the monitor no abnormalities seen on the echocardiogram, prosthetic valve in good position no evidence of acute heart attack carotid dopplers show no stenosis you were symptomatic with vestibular maneuvers to the left side this suggests benign paroxysmal position vertigo recommend you follow the instructions provided by the therapist, rest over the weekend follow up with Dr. Minaya this week, if still with symptoms then he can prescribe more vestibular therapy use the Meclizine as needed every 8 hours for vertigo, but DO NOT take it scheduled Pending Studies at Discharge: No Stand-Alone Forms: My [facility] Medications and DC Order Prescriptions: New meclizine 25 mg Tablet 25 mg PO Q8 PRN (Reason: dizziness) 10 Days Qty: 30 RF: 0 Continued omeprazole 40 mg capsule,delayed release(DR/EC) 40 mg PO DAILY Qty: 90 RF: 3 aspirin [Adult Aspirin Regimen] 81 mg tablet,delayed release (DR/EC) 81 mg PO DAILY Qty: 30 RF: 2 calcium carbonate [Calcium 500] 500 mg calcium (1,250 mg) tablet 500 mg PO DAILY Qty: 90 RF: 3 docusate sodium 100 mg capsule 100 mg PO DAILY Qty: 90 RF: 3 finasteride 5 mg tablet 5 mg PO DAILY Qty: 90 RF: 3 metoprolol tartrate 25 mg tablet 25 mg PO BID Qty: 180 RF: 3 amlodipine 10 mg tablet 10 mg PO DAILY RF: 0 sertraline 25 mg tablet 25 mg PO DAILY Qty: 30 RF: 5 loratadine [Claritin] 10 mg Tablet 10 mg PO DAILY PRN (Reason: Allergy Symptoms) RF: 0 Eliquis 5 mg Tablet 5 mg PO BID RF: 0 atorvastatin 40 mg tablet 20 mg PO QPM RF: 0 acetaminophen [Acetaminophen Extra Strength] 500 mg Tablet 1,000 mg PO TID PRN (Reason: Pain) RF: 0 No Action ondansetron HCl 4 mg tablet 4 mg PO TID PRN (Reason: nausea and vomiting) 5 Days Qty: 30 RF: 0 Discharge Orders: Discharge Order (Routine); Ordered 03/20/19 Ordered By: Juan Buck Admission Data Admit Date/Time: 03/19/19 12:19 Attending Provider: Juan Buck Admit Provider: Juan Buck Primary Care Provider: Kevin Minaya Other Providers: Yfn Francis ; Itz Raines. Other Interventions: Discharge Summary Assessment (RN) Last Done: 03/20/19 14:39 DC Date/Time DO NOT enter until pt leaves facility: 03/20/19 15:12
== END 2019-03-20 15:12 | disposition home or self-care (01) ==
LOC: ED 09:34 → 2E 09:34

== ENCOUNTER 2020-01-31 12:06 | Inpatient (IN) ==
[2020-01-31] MEDS ORDERED: ONDANSETRON INJ 2 MG/ML 2 ML VIAL IV STA ×2 (12:24→13:58)
--- NOTE | 2020-01-31 12:32 | Emergency Department Note ---
Impression & Plan Syncope, Abnormal ECG, Nausea & vomiting ED Provider Note NAME: JAIDEN WRIGHT AGE: 84 SEX: M : 1935 ARRIVES VIA: Ambulance INFORMANT: Patient, additional history was obtained from the prehospital personnel as well as the patient's significant other ED PROVIDER(S): Jamar Tapia DO CHIEF COMPLAINT: Syncope HPI: The patient is an 84-year-old male who presented to the emergency department for possible syncope. The patient was at [place] with his significant other when he started feeling "all warm all over". The patient then had an episode while he was seated where he became unresponsive and started staring. He clenched his upper extremities. There is no tonic-clonic activity. The patient had some nausea and vomiting prior to arrival. He denies having any headaches. He denies having any chest pain or difficulty breathing. He denies having any lower extremity pain or swelling. The patient did have 1 similar episode almost a year ago. At that time he was admitted to our facility and had a complete work-up. He has a history of aortic valve replacement. He does take chronic anticoagulation for atrial fibrillation. The patient does not have a pacemaker. The patient states that he feels back to baseline at this time with the exception of nausea. He denies having any neck pain. ROS: See above HPI for pertinent positives & negatives. A total of 10 systems reviewed and were otherwise negative. PAST MEDICAL HISTORY: See Below PAST SURGICAL HISTORY: See Below FAMILY HISTORY: See Below SOCIAL HISTORY: See Below HOME MEDICATIONS: See Below ALLERGIES: See Below VITALS: See Below PHYSICAL EXAMINATION: GENERAL: Patient is awake alert in no acute distress patient is resting comfortably and showing no signs of anxiety EYES: The conjunctivae are clear. The pupils are round and reactive. EARS, NOSE, MOUTH AND THROAT: The nose is without any evidence of any deformity. NECK: The neck is nontender and supple. RESPIRATORY: Normal respiratory effort is noted there is no evidence of wheezing rhonchi or rales CARDIOVASCULAR: Regular rhythm was noted to auscultation. There is no definite murmur. GASTROINTESTINAL: The abdomen is soft. Abdomen is nontender. MUSCULOSKELETAL/EXTREMITIES: There is no evidence of gross deformity full range of motion is noted in the hips and shoulders. SKIN: There is no obvious evidence of any rash. There is no pedal edema. Pulses were symmetric in both feet. There is no calf tenderness. NEUROLOGIC: Patient is awake alert and oriented x3 strength is symmetric patellar reflexes are 2+ bilaterally MEDICAL DECISION MAKING: The patient is an 84-year-old male who presented to the emergency department for evaluation of possible seizure versus syncope. The patient does have an abnormal EKG. The patient has a history of valvular heart disease. Given the patient's past medical history it is likely this represents a cardiac source for the patient's syncope. He does state that he had been evaluated with similar complaints in the past but no definite cause for his syncope could be found and the patient was not felt to be a candidate for a pacemaker at that time. I discussed the patient's laboratory and radiographic studies with him and his significant other. He was treated with medications for nausea in the emergency department. Ultimately given his history I did discuss his case with the on- call [facility] hospitalist group. They have agreed to evaluate the patient in the emergency department for further management and disposition. Triage Nursing notes reviewed. Prior medical records reviewed Vital Signs: reviewed and remarkable for elevated blood pressure. Differential diagnosis: Vasovagal event, dehydration, infection, hypoglycemia, electrolyte abnormalities, cardiac sources, intracerebral event, pulmonary embolism, seizure, toxicologic, neurologic, as well as other pathologies. ER treatment provided: See below Diagnostics interpreted by me: ECG: EKG was obtained in the emergency department. My interpretation is atrial fibrillation at 66 bpm. PVCs were noted. Anterior and low lateral T wave inversions were also noted. This was compared to a tracing from March 192018. No significant changes were noted. Cardiac Monitoring: An order was placed for continuous cardiac monitoring. The monitor shows a rate of 80 bpm with atrial fibrillation rhythm. Laboratory studies: As stated above and show below. Imaging studies: See below Consultation(s): 1400: I discussed this case with Dr. Franco. ED COURSE: Procedures: none PDMP:reviewed and no issues Critical Care: None Past Med/Surg History Medical History (Updated 01/31/20 @ 18:19 by Jamar Tapia DO) Atrial fibrillation Atrial fibrillation, permanent Benign essential hypertension CAD (coronary artery disease) Carotid artery stenosis Chronic anticoagulation Claudication COPD with asthma MERA (dyspnea on exertion) Hematuria History of basal cell carcinoma History of SCC (squamous cell carcinoma) of skin Hypercholesterolemia retirement current use of anticoagulant Severe aortic stenosis Vitamin B 12 deficiency Vitamin D deficiency Surgical History History of blepharoplasty History of colonoscopy History of hemorrhoidectomy History of hernia repair 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 PSH Status post transcatheter aortic valve replacement (TAVR) using bioprosthesis Family History Father Coronary heart disease Myocardial infarction Sister Breast cancer Denies family history of Ovarian cancer Prostate cancer Colorectal cancer Social History Smoking Status: Never smoker Second Hand Exposure: No; Hx Alcohol Use: No Hx Substance Use: No Preferred Language: Hebrew Communication Ability: Effective Visual Impairment: Limited Hearing Ability: Normal Twister In Required: No Beliefs That Will Affect Care: None marital status: Current Living Situation: Spouse current occupational status: retired Feels Safe at Home: Yes Safety Concerns: Feels Safe At This Time Childhood Exposure to Second-Hand Smoke: No caffeine: No Dental Care, Regularly: No Physical Activity Frequency: Daily Seatbelt Use: always Sunscreen Use: No Allergies Allergies Allergy/AdvReac Type Severity Reaction Status Date / Time lisinopril AdvReac Mild DIZZINESS Verified 01/31/20 13:26 silodosin [From Rapaflo] AdvReac NAUSEA Verified 01/31/20 13:26 tamsulosin AdvReac Verified 01/31/20 13:26 Home Meds Home Medications Medication Instructions Recorded Confirmed loratadine [Claritin] 10 mg PO DAILY PRN 12/24/18 01/31/20 acetaminophen [Acetaminophen Extra 1,000 mg PO TID PRN 03/19/19 01/31/20 Strength] calcium carbonate 500 mg calcium 500 mg PO QAM 12/08/19 01/31/20 (1,250 mg) tablet vitamin B complex 1 tab PO QAM 12/08/19 01/31/20 alfuzosin 10 mg PO HS 01/31/20 01/31/20 amlodipine 2.5 mg PO QAM 01/31/20 01/31/20 aspirin [Adult Aspirin Regimen] 81 mg PO QAM 01/31/20 01/31/20 docusate sodium 100 mg PO QAM 01/31/20 01/31/20 finasteride 5 mg PO QAM 01/31/20 01/31/20 omeprazole 40 mg PO QAM 01/31/20 01/31/20 Previous Rx's Medication Instructions Recorded metoprolol tartrate 25 mg tablet 25 mg PO BID #180 tab 09/30/19 atorvastatin 40 mg tablet 20 mg PO QPM #45 tab 10/16/19 apixaban 5 mg tablet 5 mg PO BID #180 tab 12/08/19 Results & Data (ED) Vital Signs Vital Signs - 24 hr 01/31/20 12:12 01/31/20 12:15 01/31/20 12:20 Temperature 36.4 C L Temperature Source Oral Pulse Rate 68 68 64 Pulse Rate [Finger] 68 Pulse Rate from SpO2 Sensor 69 65 Respiratory Rate 21 21 26 H Respiratory Effort / Characteristics Non-Labored Spontaneous Respiratory Depth Normal Respiratory Pattern Regular Blood Pressure 155/82 H 155/82 H Blood Pressure [Right Arm] 155/82 H Blood Pressure Mean 124 106 Blood Pressure Mean [Right Arm] 106 Pulse Oximetry 93 92 93 Oxygen Delivery Method Room Air Room Air Room Air Sepsis Recent Fever Within 48 Hours No Sepsis New/Unexplained Change in Mental Status N/A Sepsis Action Taken by Nursing No Action Required 01/31/20 12:30 01/31/20 12:31 01/31/20 12:40 Temperature Temperature Source Pulse Rate 66 65 66 Pulse Rate [Finger] Pulse Rate from SpO2 Sensor 64 58 L 64 Respiratory Rate 19 20 22 Respiratory Effort / Characteristics Respiratory Depth Respiratory Pattern Blood Pressure 152/66 H Blood Pressure [Right Arm] Blood Pressure Mean 114 Blood Pressure Mean [Right Arm] Pulse Oximetry 95 95 92 Oxygen Delivery Method Room Air Room Air Room Air Sepsis Recent Fever Within 48 Hours Sepsis New/Unexplained Change in Mental Status Sepsis Action Taken by Nursing 01/31/20 12:50 01/31/20 13:00 01/31/20 13:01 Temperature Temperature Source Pulse Rate 61 65 63 Pulse Rate [Finger] Pulse Rate from SpO2 Sensor 59 L 65 64 Respiratory Rate 24 26 H 23 Respiratory Effort / Characteristics Respiratory Depth Respiratory Pattern Blood Pressure 145/72 H Blood Pressure [Right Arm] Blood Pressure Mean 93 Blood Pressure Mean [Right Arm] Pulse Oximetry 97 97 95 Oxygen Delivery Method Room Air Room Air Room Air Sepsis Recent Fever Within 48 Hours Sepsis New/Unexplained Change in Mental Status Sepsis Action Taken by Nursing 01/31/20 13:10 01/31/20 13:20 01/31/20 13:35 Temperature Temperature Source Pulse Rate 53 L 54 L 64 Pulse Rate [Finger] Pulse Rate from SpO2 Sensor 54 L 49 L 67 Respiratory Rate 18 20 23 Respiratory Effort / Characteristics Respiratory Depth Respiratory Pattern Blood Pressure Blood Pressure [Right Arm] Blood Pressure Mean Blood Pressure Mean [Right Arm] Pulse Oximetry 92 93 Oxygen Delivery Method Room Air Room Air Room Air Sepsis Recent Fever Within 48 Hours Sepsis New/Unexplained Change in Mental Status Sepsis Action Taken by Nursing 01/31/20 13:40 01/31/20 13:50 01/31/20 14:00 Temperature Temperature Source Pulse Rate 68 69 70 Pulse Rate [Finger] Pulse Rate from SpO2 Sensor 69 69 70 Respiratory Rate 17 14 21 Respiratory Effort / Characteristics Respiratory Depth Respiratory Pattern Blood Pressure 163/83 H Blood Pressure [Right Arm] Blood Pressure Mean 126 Blood Pressure Mean [Right Arm] Pulse Oximetry 92 93 92 Oxygen Delivery Method Room Air Room Air Room Air Sepsis Recent Fever Within 48 Hours Sepsis New/Unexplained Change in Mental Status Sepsis Action Taken by Nursing 01/31/20 14:01 01/31/20 14:10 Temperature Temperature Source Pulse Rate 72 67 Pulse Rate [Finger] Pulse Rate from SpO2 Sensor 71 70 Respiratory Rate 22 20 Respiratory Effort / Characteristics Respiratory Depth Respiratory Pattern Blood Pressure Blood Pressure [Right Arm] Blood Pressure Mean Blood Pressure Mean [Right Arm] Pulse Oximetry 91 90 Oxygen Delivery Method Room Air Room Air Sepsis Recent Fever Within 48 Hours Sepsis New/Unexplained Change in Mental Status Sepsis Action Taken by [facility] Medications Current Medication List: was personally reviewed by me Laboratory Data Attestation: I reviewed the patient's lab results. Result diagrams: 01/31/20 12:22 01/31/20 12:22 Lab Results 01/31/20 01/31/20 01/31/20 Range/Units 12:22 12:22 12:22 WBC 7.61 (4.8-10.8) K/uL RBC 4.68 L (4.7-6.1) M/uL Hgb 13.3 L (14.0-18.0) g/dL Hct 41.2 L (42-52) % MCV 88.0 (80-100) fL MCH 28.4 (25-34) pg MCHC 32.3 (32-36) g/dL RDW Std Deviation 49.6 H (36.4-46.3) fL RDW Coeff of Manju 15.4 H (11.5-14.5) % Plt Count 206 (130-400) K/uL MPV 10.7 H (7.4-10.4) fL Immature Gran % (Auto) 0.3 % Neut % (Auto) 55.2 % Lymph % (Auto) 29.0 % [place] % (Auto) 8.9 % Eos % (Auto) 5.7 % Baso % (Auto) 0.9 % Neut # (Auto) 4.20 (1.4-6.5) K/uL Lymph # (Auto) 2.21 (1.2-3.4) K/uL [place] # (Auto) 0.68 H (0.11-0.59) K/uL Eos # (Auto) 0.43 (0-0.5) K/uL Baso # (Auto) 0.07 (0-0.2) K/uL Immature Gran # (Auto) 0.02 (0.00-0.02) K/uL PT 11.4 (9.0-12.0) Seconds INR 1.1 (0.9-1.1) APTT 26.7 (21.0-31.0) Seconds PTT Ratio 1.0 Sodium 140 (136-145) mmol/L Potassium 3.9 (3.5-5.1) mmol/L Chloride 107 (98-107) mmol/L Carbon Dioxide 25 (21-32) mmol/L Anion Gap 8.0 (3-11) BUN 20 H (7-18) mg/dl Creatinine 1.26 (0.6-1.4) mg/dl Est Cr Clr Drug Dosing 42.2 ml/min Est GFR ( Amer) 59.5 Est GFR (Non-Af Amer) 51.3 BUN/Creatinine Ratio 15.7 (10-20) Glucose 107 H (70-99) mg/dl Calcium 8.5 (8.5-10.1) mg/dl Magnesium 1.9 (1.8-2.4) mg/dl Total Bilirubin 0.6 (0.2-1) mg/dl AST 13 L (15-37) U/L ALT 18 (12-78) U/L Alkaline Phosphatase 35 L (45-117) U/L Troponin I 0.067 H* (0-0.045) ng/ml Total Protein 7.6 (6.4-8.2) gm/dl Albumin 3.3 L (3.4-5.0) gm/dl Globulin 4.3 H (2.5-4.0) gm/dl Albumin/Globulin Ratio 0.8 L (0.9-2) Lipase 114 (73-393) U/L TSH 2.530 (0.300-4.500) uIu/ml Administered Medications Discontinued Medications Ondansetron HCl (Ondansetron Inj 2 Mg/Ml 2 Ml Vial) 4 mg IV NOW STA Stop: 01/31/20 12:25 Last Admin: 01/31/20 13:01 Dose: 4 mg Documented by: [id number] Ondansetron HCl (Ondansetron Inj 2 Mg/Ml 2 Ml Vial) 4 mg IV NOW STA Stop: 01/31/20 13:59 Last Admin: 01/31/20 14:01 Dose: 4 mg Documented by: [id number] Imaging Data Radiologist's Impression: CT head/brain wo con CLINICAL HISTORY: syncope COMPARISON STUDY: MRI the brain dated 04/21/2019 TECHNIQUE: Axial CT of the brain is performed from the vertex to the skull base. IV contrast was not administered for this examination. A dose lowering technique was utilized adhering to the principles of ALARA. CT DOSE: 712.55 mGy.cm FINDINGS: No intra or extra-axial mass lesions are visualized. There is no CT evidence of acute cortical infarction. There is no evidence of midline shift. There is no acute hemorrhage. No calvarial fractures are visualized. There are patchy white matter hypodensities likely on a small vessel basis. 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 There is no evidence of pathologic ventricular dilatation. There is moderate bilateral maxillary sinus mucosal thickening. There is sphenoid sinus mucosal thickening. Ethmoid sinus mucosal thickening and mild frontal sinus mucosal thickening. 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 IMPRESSION: 1. Pansinus disease 2. No acute intracranial findings ACT 112: Negative or not required by law. Electronically signed by: Rony Honeycutt M.D. 01/31/2020 1:34 PM Dictated: 01/31/20 1332 Transcribed: 01/31/20 1332 XR chest 1V portable CLINICAL HISTORY: Syncope COMPARISON STUDY: 03/19/2019 FINDINGS: The heart is enlarged. There is aortic valve prosthesis. There is mild pulmonary vascular congestion. There is no lobar consolidation. There are no large pleural effusions. Left upper quadrant rim calcified lesions are again visualized.[ IMPRESSION: 1. Cardiomegaly and mild pulmonary vascular congestion/fluid overload 2. No evidence of focal pulmonary consolidation ACT 112: Negative or not required by law. Electronically signed by: Rony Honeycutt M.D. 01/31/2020 1:07 PM Dictated: 01/31/20 1305 Transcribed: 01/31/20 1305 Blood Pressure Blood Pressure Findings: Elevated blood pressure Blood Pressure Disposition: further management by hospitalist Discharge Plan Visit Data Chief Complaint: Seizure Stated Complaint: seizure ED Provider: Jamar Tapia Discharge Problem: Syncope, Abnormal ECG, Nausea & vomiting Patient Disposition: Admitted As Inpatient Condition: Good Discharge Instructions Interventions: ED Discharge Assessment Last Done: 01/31/20 15:09
[2020-01-31 12:38] LABS: Basophils # (auto) 0.07 K/uL (0-0.2); Basophils % (auto) 0.9 %; Eosinophils # (auto) 0.43 K/uL (0-0.5); Eosinophils % (auto) 5.7 %; Hematocrit (blood only) 41.2 % (42-52); Hemoglobin 13.3 g/dL (14.0-18.0); Immature Granulocytes # (auto) 0.02 K/uL (0.00-0.02); Immature Granulocytes % (auto) 0.3 %; Lymphocytes # (auto) 2.21 K/uL (1.2-3.4); Mean Corpuscular Hemoglobin 28.4 pg (25-34); Mean Corpuscular Hgb Conc 32.3 g/dL (32-36); Mean Platelet Volume 10.7 fL (7.4-10.4); Monocytes # (auto) 0.68 K/uL (0.11-0.59); Monocytes % (auto) 8.9 %; Neutrophils % (auto) 55.2 %; Platelet Count 206 K/uL (130-400); RDW Coefficient of Variation 15.4 % (11.5-14.5); RDW Standard Deviation 49.6 fL (36.4-46.3); Red Blood Count 4.68 M/uL (4.7-6.1); White Blood Count 7.61 K/uL (4.8-10.8)
[2020-01-31 12:48] LABS: INR 1.1 (0.9-1.1); Partial Thromboplastin Time 26.7 Seconds (21.0-31.0); Prothrombin Time 11.4 Seconds (9.0-12.0)
[2020-01-31 12:58] LABS: Albumin Level 3.3 gm/dl (3.4-5.0); BUN Creatinine Ratio 15.7 (10-20); Calcium 8.5 mg/dl (8.5-10.1); Creatinine Clr Calc Pharmacy 42.2 ml/min; Est GFR (African American) 59.5; Est GFR (Non-African American) 51.3; Magnesium 1.9 mg/dl (1.8-2.4); Potassium 3.9 mmol/L (3.5-5.1)
--- NOTE | 2020-01-31 13:08 | XRay Report ---
XR chest 1V portable CLINICAL HISTORY: Syncope COMPARISON STUDY: 03/19/2019 FINDINGS: The heart is enlarged. There is aortic valve prosthesis. There is mild pulmonary vascular c ongestion. There is no lobar consolidation. There are no large pleural effusions. Left upper quadrant rim calcified lesions are again visualized.[ IMPRESSION: 1. Cardiomegaly and mild pulmonary vascular congestion/fluid overload 2. No evidence of focal pulmonary consolidation ACT 112: Negative or not required by law. Electronically signed by: Rony Honeycutt M.D. 01/31/2020 1:07 PM
[2020-01-31 13:10] LABS: Albumin Globulin Ratio 0.8 (0.9-2); Bilirubin,Total 0.6 mg/dl (0.2-1); Globulin 4.3 gm/dl (2.5-4.0); Thyroid Stimulating Hormone 2.53 uIu/ml (0.300-4.500); Total Protein 7.6 gm/dl (6.4-8.2); Troponin I 0.067 ng/ml (0-0.045)
--- NOTE | 2020-01-31 13:35 | CT Scan Report ---
CT head/brain wo con CLINICAL HISTORY: syncope COMPARISON STUDY: MRI the brain dated 04/21/2019 TECHNIQUE: Axial CT of the brain is performed from the vertex to the skull base. IV contrast was not administered for this examination. A dose lowering technique was utilized adhering to the principles of ALARA. CT DOSE: 712.55 mGy.cm FINDINGS: No intra or extra-axial mass lesions are visualized. There is no CT evidence of acute cortical infarc tion. There is no evidence of midline shift. There is no acute hemorrhage. No calvarial fractures ar e visualized. There are patchy white matter hypodensities likely on a small vessel basis. There are old bilateral c erebellar infarcts. There is no evidence of pathologic ventricular dilatation. There is moderate bilateral maxillary sinus mucosal thickening. There is sphenoid sinus mucosal thick ening. Ethmoid sinus mucosal thickening and mild frontal sinus mucosal thickening. There is a right f rontal scalp lipoma. IMPRESSION: 1. Pansinus disease 2. No acute intracranial findings ACT 112: Negative or not required by law. Electronically signed by: Rony Honeycutt M.D. 01/31/2020 1:34 PM
--- NOTE | 2020-01-31 14:06 | History & Physical Report ---
Date of Service January 31, 2020 Assessment & Plan (1) Syncope: Patient had a brief reversible episode of unresponsiveness while at [place] which may have involved some tonic-clonic movements however these were most likely related to syncopal episode. He had immediate resumption of his neurol ogical functioning will have him monitored in observation for arrhythmias and further activity his laboratory imaging and EKG evaluation on presentation were unremarkable with exception of troponin which was elevated but he does have a history of chronic elevation Patient's been in touch with Dr. Lucas on multiple occasions over the last month and a half regarding postural hypotension and has been having his morning amlodipine dose reduced. We will hold amlodipine at this time Having to sacrifice some elevated systolic and diastolic blood pressure to avoid postural hypotension in the future (2) Atrial fibrillation, permanent: Patient remains on metoprolol tartrate 25 twice daily, apixaban 5 twice daily and aspirin 81 (3) S/P TAVR (transcatheter aortic valve replacement): Done at [place] 1 year ago for aortic stenosis has been doing well since with exception of orthostatic hypotension management Dr. 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 The patient has had no chest pain or discomfort with his symptoms this morning (5) WILLIE (obstructive sleep apnea): Patient typically wears BiPAP at night we will supply him with our unit as he does not have his with him (6) Nausea: Patient has had some nausea over the last few weeks his normal LFTs on presentation a gallbladder ultrasound will be ordered he has no defined discrete abdominal discomfort (7) BPH (benign prostatic hyperplasia): Patient has no lower urinary tract symptoms at this time he will continue on the alfuzocin and finasteride (8) DVT prophylaxis: SCDs and apixaban will serve as DVT prevention Patient states his lower extremities have been weak and he has had difficulty ambulating lately a PT OT evaluation will be undertaken History of Present Illness Primary Care Provider: Kevin Minaya MD 84-year-old male who presented to the emergency department for possible syncope. The patient was at [place] with his significant other when he started feeling "all warm all over". The patient then had an episode while he was seated where he became unresponsive and started staring. He clenched his upper extremities. There is no tonic-clonic activity. The patient had some nausea and vomiting prior to arrival. He did not lose urinary continence. He denies having any headaches. He denies having any chest pain or difficulty breathing. He denies having any lower extremity pain or swelling. The patient did have 1 similar episode almost a year ago. At that time he was admitted to our facility and had a complete work-up. He has a history of aortic valve replacement. He does take chronic anticoagulation for atrial fibrillation. The patient does not have a pacemaker. The patient states that he feels back to baseline at this time with the exception of nausea. Patient has been bothered by intermittent nausea over the last few weeks. It is not necessarily postprandial is no associated abdominal discomfort. The patient has normal LFTs in the ER will be sent for gallbladder ultrasound. This patient has recently had interfaces with Dr. Painting regarding postural hypotension and has had his morning dose of amlodipine reduced this may be simply another effect of that Allergies Allergy/AdvReac Type Severity Reaction Status Date / Time lisinopril AdvReac Mild DIZZINESS Verified 01/31/20 13:26 silodosin [From Rapaflo] AdvReac NAUSEA Verified 01/31/20 13:26 tamsulosin AdvReac Verified 01/31/20 13:26 Home Medications Home Medications Medication Instructions Recorded Confirmed Type loratadine [Claritin] 10 mg PO DAILY PRN 12/24/18 01/31/20 History acetaminophen [Acetaminophen Extra 1,000 mg PO TID PRN 03/19/19 01/31/20 History Strength] metoprolol tartrate 25 mg tablet 25 mg PO BID #180 tab 09/30/19 01/31/20 Rx atorvastatin 40 mg tablet 20 mg PO QPM #45 tab 10/16/19 01/31/20 Rx apixaban 5 mg tablet 5 mg PO BID #180 tab 12/08/19 01/31/20 Rx calcium carbonate 500 mg calcium 500 mg PO QAM 12/08/19 01/31/20 History (1,250 mg) tablet vitamin B complex 1 tab PO QAM 12/08/19 01/31/20 History alfuzosin 10 mg PO HS 01/31/20 01/31/20 History amlodipine 2.5 mg PO QAM 01/31/20 01/31/20 History aspirin [Adult Aspirin Regimen] 81 mg PO QAM 01/31/20 01/31/20 History docusate sodium 100 mg PO QAM 01/31/20 01/31/20 History finasteride 5 mg PO QAM 01/31/20 01/31/20 History omeprazole 40 mg PO QAM 01/31/20 01/31/20 History Past Med/Surg History Medical History (Updated 01/31/20 @ 14:36 by Heber Franco MD) Atrial fibrillation Atrial fibrillation, permanent Benign essential hypertension CAD (coronary artery disease) Carotid artery stenosis Chronic anticoagulation Claudication COPD with asthma MERA (dyspnea on exertion) Hematuria History of basal cell carcinoma History of SCC (squamous cell carcinoma) of skin 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 Severe aortic stenosis Vitamin B 12 deficiency Vitamin D deficiency Surgical History History of blepharoplasty History of colonoscopy History of hemorrhoidectomy History of hernia repair 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 PSH Status post transcatheter aortic valve replacement (TAVR) using bioprosthesis Family History Father Coronary heart disease Myocardial infarction Sister Breast cancer Denies family history of Ovarian cancer Prostate cancer Colorectal cancer Social History Smoking Status: Never smoker Second Hand Exposure: No; Hx Alcohol Use: No Hx Substance Use: No Preferred Language: Frisian Communication Ability: Effective Visual Impairment: Limited Hearing Ability: Normal Head Sawyer Automatic Required: No Beliefs That Will Affect Care: None marital status: Current Living Situation: Spouse current occupational status: retired Feels Safe at Home: Yes Childhood Exposure to Second-Hand Smoke: No caffeine: No Dental Care, Regularly: No Physical Activity Frequency: Daily Seatbelt Use: always Sunscreen Use: No Review of Systems Review of Systems: Mild distress and fatigue no headache, blurry or double vision no speech or swallowing issues no chest pain, pressure or palpitations no shortness of breath, cough or wheezes no abdominal pain, nausea or vomiting, diarrhea or constipation no dysuria, hematuria or frequency no focal joint pain or swelling no back pain, CVA tenderness or radicular pain no bruising, bleeding or rashes no focal signs of weakness or numbness or altered sensation no complaints or anxiety or depression. Physical Exam Physical Exam: The patient appeared well nourished and normally developed. Vital signs as documented. Head exam is normocephalic atraumatic no scleral icterus Neck is without JVD, thyromegaly, or carotid bruits. Lungs are clear to auscultation, no focal loss of breath sounds Cardiac exam, Rhythm is regular.. No murmurs, rubs or gallops. Abdominal exam reveals normal bowel sounds, soft non tender, no masses Extremities are nonedematous and both pedal pulses are normal. Neurologic exam is alert and oriented, no focal loss of strength or sensation Skin is without bruises or rashes Psychologically is without concerns for anxiety or depression. Results & Data Results & Data ([facility]) Vital Signs (Past 12 Hours) Vital Signs Temp Pulse Pulse Resp BP BP Pulse Ox 01/31/20 12:15 97.5 F L 68 68 21 155/82 H 155/82 H 92 [address] head 01/31/2020pansinus disease no acute intracranial findings Chest x-ray 01/31/2020cardiomegaly with mild pulmonary vascular congestion no evidence of focal pulmonary consolidation PG Care Time/CCT Total # of Minutes Spent Total Time Spent with Patient: Total time spent is greater than 50% in coordination of care (as documented) at patient's floor/unit and/or counseling patient: Coding Level of Care Code 32231 OBS Care - Level 3 Diagnoses Syncope R55 Atrial fibrillation, permanent I48.21 S/P TAVR (transcatheter aortic valve replacement) Z95.2 Elevated troponin R79.89 WILLIE (obstructive sleep apnea) G47.33 Nausea R11.0 BPH (benign prostatic hyperplasia) N40.0 DVT prophylaxis Z29.9
[2020-01-31] MEDS ORDERED: ALUMINUM/MAGNESIUM SUSP 30 ML UDC PO PRN (15:36)
[2020-01-31] MEDS ORDERED: ACETAMINOPHEN 500 MG TAB PO PRN (15:36)
[2020-01-31] MEDS ORDERED: ONDANSETRON INJ 2 MG/ML 2 ML VIAL IV PRN (15:36)
[2020-01-31] MEDS ORDERED: PNEUMOCOCCAL ADMINISTRATION CHARGE ONE (16:01)
[2020-01-31] MEDS ORDERED: PNEUMOCOCCAL POLYSACCHARIDES 25 MCG/0.5 ML VIAL/SYR IM ONE (16:01)
[2020-01-31 16:38] LABS: Appearance Urine Clear (Clear); Bacteria Urine Automated Negative (Negative); Bilirubin Urine Negative (Negative); Blood Urine 3+ (Negative); Color Urine Yellow; Glucose Urine UA Negative (Negative); Ketones Urine Negative (Negative); Leukocyte Esterase Urine Trace (Negative); Nitrite Urine Negative (Negative); Protein Urine Negative (Negative); RBC Urine Automated >30 /hpf (0-4); Specific Gravity Urine 1.019 (1.000-1.030); Urobilinogen Urine Negative (Negative); pH Urine 6.5 (4.5-7.5)
--- NOTE | 2020-01-31 17:32 | Ultrasound Report ---
US liver CLINICAL HISTORY: nausea worsened by food COMPARISON STUDY: CT scan dated 04/09/2019 FINDINGS: The pancreas appears normal as visualized. There is no ductal dilatation. No focal hepatic masses are visualized. The common bile duct measures 4 mm. No definite gallstones are visualized. There is no significant gallbladder wall thickening. There is visualization of the gallbladder was suboptimal. There is no right-sided hydronephrosis. There are multiple large right renal cysts measuring up to 6. 7 cm in diameter. IMPRESSION: 1. Technically difficult study. 2. No gallstones identified. No evidence of ductal dilatation 3. No pancreatic abnormalities identified 4. Multiple right renal cysts. No hydronephrosis ACT 112: Negative or not required by law. Electronically signed by: Rony Honeycutt M.D. 01/31/2020 5:31 PM
[2020-01-31] MEDS: APIXABAN 5 MG TABLET PO SCH (20:53)
[2020-01-31] MEDS: ALFUZOSIN HCL 10 MG TAB PO SCH (20:54)
[2020-01-31] MEDS: ATORVASTATIN 20 MG TAB PO SCH (20:54)
[2020-01-31] MEDS: METOPROLOL TARTRATE 25 MG TAB PO SCH (20:54)
[2020-02-01 07:03] LABS: BUN Creatinine Ratio 15.5 (10-20); Calcium 8.8 mg/dl (8.5-10.1); Creatinine Clr Calc Pharmacy 42.8 ml/min; Est GFR (African American) 61.8; Est GFR (Non-African American) 53.4; Potassium 4.1 mmol/L (3.5-5.1)
[2020-02-01] MEDS: PANTOprazole 40 MG TAB PO SCH (09:59)
[2020-02-01] MEDS: FINASTERIDE 5 MG TAB PO SCH (09:59)
[2020-02-01] MEDS: VITAMIN B COMPLEX TAB PO SCH (09:59)
[2020-02-01] MEDS: METOPROLOL TARTRATE 25 MG TAB PO SCH ×2 (09:59→20:06)
[2020-02-01] MEDS: DOCUSATE SODIUM 100 MG CAP PO SCH (10:00)
[2020-02-01] MEDS: APIXABAN 5 MG TABLET PO SCH ×2 (10:00→20:05)
[2020-02-01] MEDS: CALCIUM CARBONATE 1250MG TAB PO SCH (10:00)
[2020-02-01] MEDS: ASPIRIN 81 MG ECTAB PO SCH (10:00)
--- NOTE | 2020-02-01 10:50 | Hospitalist Progress Note ---
Date of Service February 01, 2020 Assessment & Plan (1) Acute kidney injury: Cr up to 1.6, unclear etiology no nephrotoxins will give NSS at 80cc/hr, monitor UO change to full admission check UA and renal US tomorrow (2) Syncope: occurred while sitting in [employer]ism pew, had diaphoresis and light headed prior to episode that lasted a few seconds has been following with Dr. Cortez for postural hypotension, but he was not standing when this happened no arrhythmias on monitor except chronic afib, no pauses, no v tach troponin 0.06, no ischemic changes on EKG no focal neurological deficits on exam he ambulated today, was wide based, unsteady, his BP dropped 20 points systolic but he had no symptoms? (3) Peripheral neuropathy: describes tingling, pain in bilateral legs, has difficulty walking on uneven surfaces or grass cannot find a prior work up check B 12, folic acid, TSH -- all normal check SPEP tomorrow AM start on Neurontin 100mg BID this morning (4) Atrial fibrillation, permanent: Patient remains on metoprolol tartrate 25 twice daily, apixaban 5 twice daily and aspirin 81 (5) S/P TAVR (transcatheter aortic valve replacement): Done at [place] 1 year ago for aortic stenosis has been doing well since with exception of orthostatic hypotension management Dr. 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 The patient has had no chest pain or discomfort with his symptoms this morning (7) WILLIE (obstructive sleep apnea): Patient typically wears BiPAP at night we will supply him with our unit as he does not have his with him (8) Nausea: Patient has had some nausea over the last few weeks his normal LFTs on presentation a gallbladder ultrasound will be ordered he has no defined discrete abdominal discomfort (9) BPH (benign prostatic hyperplasia): Patient has no lower urinary tract symptoms at this time he will continue on the alfuzocin and finasteride (10) DVT prophylaxis: SCDs and apixaban will serve as DVT prevention Patient states his lower extremities have been weak and he has had difficulty ambulating lately a PT OT evaluation will be undertaken Admission and Anticipated Discharge Date Admission Date: January 31, 2020 Subjective patient says that he lost consciousness yesterday when SITTING in gn[employer]ism pew he said he had just been standing to sing some hymns he said that he did not feel well in the morning when he woke up, he said his legs hurt and he felt weak, "I probably should have stayed home" he said that he was only unconscious a few seconds, his friends put his legs up, laid him flat on the ground he has been adjusting his blood pressure medications with Dr. Cortez, lowering dose of amlodipine and then even stopping it this is not his first syncopal episode he c/o tingling and pain in his legs, this is ongoing issue, to his knowledge he has not had a neuropathy work up he had vascular studies showing adequate arterial flow to his legs discussed checking B12, folic acid, TSH and SPEP, he agrees can get EMG as outpatient he walked with PT in the hallway, said he did okay but still feeling unsteady and weak, pain in legs when walking patient had episode of nausea and diaphoresis in the later afternoon while laying in bed nausea went away with Zofran EKG with afib but no ischemic changes, troponin 0.06, D dimer < 200, but Cr up to 1.6 which was new finding Review of Systems Review of Systems: All systems reviewed & are unremarkable except as noted in Subjective Constitutional: + sweats and + weakness; no fever and no fatigue Respiratory: no cough and no dyspnea Cardiovascular: + syncope (yesterday); no chest pain, no palpitations and no edema Gastrointestinal: + nausea; no abdominal pain, no vomiting, no constipation and no diarrhea/loose stools Neurologic: + unsteadiness and + tingling (legs bilaterally); no radiating pain, no tremor(s), no seizure-like activity, no headache(s) and no confusion Physical Exam Constitutional: WD/WN, vitals as above Eyes: PERRL, conjunctivae normal, anicteric sclerae ENMT: external ear and nose normal, oropharynx normal Neck: trachea midline, no thyromegaly Respiratory: normal respiratory effort, lungs clear to auscultation Cardiovascular: RRR, no murmur, no edema Gastrointestinal (Abdomen): normal bowel sounds, soft, nontender, no hepatosplenomegaly Musculoskeletal: no cyanosis or clubbing, extremities motor strength 5/5 Skin: no rashes, warm and dry Neurologic: patellar DTR's 2+ bilat, sensation intact and PERRL, EOMI, accommodation nl, no face palsy, no dysarthria Psychiatric: A+Ox3, euthymic affect Lymphatic: no cervical or axillary lymphadenopathy Results & Data Results & Data ([facility]) Vital Signs (Past 12 Hours) Vital Signs Temp Pulse Pulse Resp BP Pulse Ox 02/01/20 08:03 36.7 C 74 18 174/71 H 90 02/01/20 07:45 66 02/01/20 03:24 36.4 C L 63 18 136/69 90 02/01/20 03:15 72 20 96 02/01/20 00:32 36.4 C L 65 20 147/73 H 91 01/31/20 23:00 74 Laboratory Results Laboratory Results - last 24 hr 01/31/20 02/01/20 02/01/20 21:35 06:13 10:45 D-Dimer Sodium 138 Potassium 4.1 Chloride 105 Carbon Dioxide 28 Anion Gap 5.0 BUN 19 H Creatinine 1.22 Est Cr Clr Drug Dosing 42.8 Est GFR ( Amer) 61.8 Est GFR (Non-Af Amer) 53.4 BUN/Creatinine Ratio 15.5 Glucose 102 H Calcium 8.8 Total Bilirubin AST ALT Alkaline Phosphatase Troponin I 0.054 H* Total Protein Albumin Globulin Albumin/Globulin Ratio Vitamin B12 1123 H Folate > 24.00 TSH 02/01/20 02/01/20 02/01/20 10:45 16:29 16:29 D-Dimer < 190 Sodium 137 Potassium 4.0 Chloride 104 Carbon Dioxide 25 Anion Gap 7.0 BUN 22 H Creatinine 1.60 H D Est Cr Clr Drug Dosing 32.7 Est GFR ( Amer) 44.6 Est GFR (Non-Af Amer) 38.4 BUN/Creatinine Ratio 13.7 Glucose 111 H Calcium 8.9 Total Bilirubin 0.5 AST 16 ALT 17 Alkaline Phosphatase 33 L Troponin I 0.060 H* Total Protein 7.2 Albumin 3.2 L Globulin 4.0 Albumin/Globulin Ratio 0.8 L Vitamin B12 Folate TSH 0.684 Medications Administered Current Inpatient Medications Acetaminophen (Acetaminophen 500 Mg Tab) 1,000 mg PO TID PRN PRN Reason: Pain Stop: 03/01/20 15:35 Al Hydrox/Mg Hydrox/Simethicone (Aluminum/Magnesium Susp 30 Ml Udc) 15 ml PO Q4H PRN PRN Reason: Dyspepsia Stop: 03/01/20 15:35 Alfuzosin HCl (Alfuzosin Hcl 10 Mg Tab) 10 mg PO HS [facility] Stop: 03/01/20 20:59 Last Admin: 02/01/20 20:06 Dose: 10 mg Documented by: Apixaban (Apixaban 5 Mg Tablet) 5 mg PO BID [facility] Stop: 03/01/20 20:59 Last Admin: 02/01/20 20:05 Dose: 5 mg Documented by: Aspirin (Aspirin 81 Mg Ectab) 81 mg PO QAM [facility] Stop: 03/02/20 08:59 Last Admin: 02/01/20 10:00 Dose: 81 mg Documented by: Atorvastatin Calcium (Atorvastatin 20 Mg Tab) 20 mg PO QPM [facility] Stop: 03/01/20 20:59 Last Admin: 02/01/20 20:06 Dose: 20 mg Documented by: Calcium Carbonate (Calcium Carbonate 1250mg Tab) [facility] Stop: 03/02/20 08:59 Last Admin: 02/01/20 10:00 Dose: 1,250 mg Documented by: Docusate Sodium (Docusate Sodium 100 Mg Cap) 100 mg PO QAM [facility] Stop: 03/02/20 08:59 Last Admin: 02/01/20 10:00 Dose: 100 mg Documented by: Finasteride (Finasteride 5 Mg Tab) 5 mg PO QAM [facility] Stop: 03/02/20 08:59 Last Admin: 02/01/20 09:59 Dose: 5 mg Documented by: Gabapentin (Gabapentin 100 Mg Cap) 100 mg PO BID [facility] Stop: 03/02/20 10:44 Last Admin: 02/01/20 20:07 Dose: 100 mg Documented by: Sodium Chloride (Nss 1000ml) 1,000 mls @ 80 mls/hr IV .[id number] [facility] Stop: 03/02/20 21:44 Metoprolol Tartrate (Metoprolol Tartrate 25 Mg Tab) 25 mg PO BID [facility] Stop: 03/01/20 20:59 Last Admin: 02/01/20 20:06 Dose: 25 mg Documented by: Ondansetron HCl (Ondansetron Inj 2 Mg/Ml 2 Ml Vial) 4 mg IV Q6H PRN PRN Reason: Nausea Stop: 03/01/20 15:35 Last Admin: 02/01/20 16:08 Dose: 4 mg Documented by: Pantoprazole Sodium (Pantoprazole 40 Mg Tab) 40 mg PO QAM [facility] Stop: 03/02/20 08:59 Last Admin: 02/01/20 09:59 Dose: 40 mg Documented by: Vitamin B Complex (Vitamin B Complex Tab) 1 tab PO QAM ADA Stop: 03/02/20 08:59 Last Admin: 02/01/20 09:59 Dose: 1 tab Documented by: ECG Indication: nausea Rhythm: atrial fibrillation Findings: no acute ischemic change PG Care Time/CCT Total # of Minutes Spent Total Time Spent with Patient: Total time spent is greater than 50% in coordination of care (as documented) at patient's floor/unit and/or counseling patient: Coding Level of Care Code 89044 Subseq Hosp Care Lvl 3 Diagnoses Acute kidney injury N17.9 Syncope R55 Peripheral neuropathy G62.9 Atrial fibrillation, permanent I48.21 S/P TAVR (transcatheter aortic valve replacement) Z95.2 Elevated troponin R79.89 WILLIE (obstructive sleep apnea) G47.33 Nausea R11.0 BPH (benign prostatic hyperplasia) N40.0 DVT prophylaxis Z29.9
[2020-02-01] MEDS: GABAPENTIN 100 MG CAP PO SCH ×2 (11:35→20:07)
[2020-02-01 12:40] LABS: Folate (Folic Acid) > 24.00 ng/ml (>5.38); Vitamin B12 1123 pg/ml (211-911)
[2020-02-01 17:05] LABS: Albumin Level 3.2 gm/dl (3.4-5.0); BUN Creatinine Ratio 13.7 (10-20); Calcium 8.9 mg/dl (8.5-10.1); Creatinine Clr Calc Pharmacy 32.7 ml/min; Est GFR (African American) 44.6; Est GFR (Non-African American) 38.4
[2020-02-01 17:10] LABS: D Dimer < 190 ug/L FEU (0-500)
[2020-02-01 17:23] LABS: Albumin Globulin Ratio 0.8 (0.9-2); Bilirubin,Total 0.5 mg/dl (0.2-1); Total Protein 7.2 gm/dl (6.4-8.2)
[2020-02-01 18:55] LABS: Troponin I 0.06 ng/ml (0-0.045)
[2020-02-01] MEDS: ATORVASTATIN 20 MG TAB PO SCH (20:06)
[2020-02-01] MEDS: ALFUZOSIN HCL 10 MG TAB PO SCH (20:06)
[2020-02-01] MEDS: SODIUM CHLORIDE 0.9% 1000ML 1,000 ML IV SCH (22:34)
--- NOTE | 2020-02-02 06:20 | Electrocardiogram Report ---
Test Reason : Blood Pressure : / mmHG Vent. Rate : 066 BPM Atrial Rate : 089 BPM P-R Int : 000 ms QRS Dur : 120 ms QT Int : 440 ms P-R-T Axes : 000 -61 -27 degrees QTc Int : 461 ms Poor data quality, interpretation may be adversely affected Atrial fibrillation with premature ventricular or aberrantly conducted complexes Left anterior fascicular block Cannot rule out Inferior infarct (cited on or before 19-MAR-2019) T wave abnormality, consider anterolateral ischemia Abnormal ECG When compared with ECG of 19-MAR-2019 11:10, T wave inversion more evident in Anterolateral leads Confirmed by Itz Raines ([id number]) on 02/02/2020 6:20:34 AM Referred By: REFERRED SELF Confirmed By:Itz Raines
[2020-02-02 06:48] LABS: Appearance Urine Cloudy (Clear); Bacteria Urine Automated Negative (Negative); Bilirubin Urine Negative (Negative); Blood Urine 3+ (Negative); Cast Urine Automated 0 /lpf (0-5); Color Urine Yellow; Epithelial Cell Urine Auto 0-5 /lpf (0-5); Glucose Urine UA Negative (Negative); Ketones Urine Negative (Negative); Leukocyte Esterase Urine Negative (Negative); Nitrite Urine Negative (Negative); Protein Urine Trace (Negative); RBC Urine Automated >30 /hpf (0-4); Specific Gravity Urine 1.016 (1.000-1.030); Urobilinogen Urine Negative (Negative)
--- NOTE | 2020-02-02 06:55 | Electrocardiogram Report ---
Test Reason : Blood Pressure : / mmHG Vent. Rate : 070 BPM Atrial Rate : 000 BPM P-R Int : 000 ms QRS Dur : 104 ms QT Int : 436 ms P-R-T Axes : 000 -69 -17 degrees QTc Int : 470 ms Atrial fibrillation with premature ventricular or aberrantly conducted complexes Left anterior fascicular block Cannot rule out Inferior infarct (cited on or before 19-MAR-2019) T wave abnormality, consider anterior ischemia Abnormal ECG When compared with ECG of 31-JAN-2020 12:15, No significant change Confirmed by Itz Raines ([id number]) on 02/02/2020 6:54:51 AM Referred By: REFERRED SELF Confirmed By:Itz Raines
[2020-02-02 06:59] LABS: Hematocrit (blood only) 38.3 % (42-52); Hemoglobin 12.5 g/dL (14.0-18.0); Mean Corpuscular Hgb Conc 32.6 g/dL (32-36); Mean Corpuscular Volume 85.7 fL (80-100); Mean Platelet Volume 10.1 fL (7.4-10.4); Platelet Count 193 K/uL (130-400); RDW Coefficient of Variation 15.4 % (11.5-14.5); RDW Standard Deviation 48.3 fL (36.4-46.3); Red Blood Count 4.47 M/uL (4.7-6.1); White Blood Count 7.21 K/uL (4.8-10.8)
[2020-02-02 07:33] LABS: BUN Creatinine Ratio 17.6 (10-20); Calcium 8.4 mg/dl (8.5-10.1); Creatinine Clr Calc Pharmacy 42.2 ml/min; Est GFR (African American) 60.6; Est GFR (Non-African American) 52.3; Potassium 4.1 mmol/L (3.5-5.1)
[2020-02-02] MEDS: DOCUSATE SODIUM 100 MG CAP PO SCH (08:26)
[2020-02-02] MEDS: CALCIUM CARBONATE 1250MG TAB PO SCH (08:26)
[2020-02-02] MEDS: PANTOprazole 40 MG TAB PO SCH (08:26)
[2020-02-02] MEDS: FINASTERIDE 5 MG TAB PO SCH (08:26)
[2020-02-02] MEDS: APIXABAN 5 MG TABLET PO SCH ×2 (08:26→22:09)
[2020-02-02] MEDS: GABAPENTIN 100 MG CAP PO SCH ×2 (08:26→22:10)
[2020-02-02] MEDS: METOPROLOL TARTRATE 25 MG TAB PO SCH ×2 (08:26→22:09)
[2020-02-02] MEDS: ASPIRIN 81 MG ECTAB PO SCH (08:26)
[2020-02-02] MEDS: VITAMIN B COMPLEX TAB PO SCH (08:26)
[2020-02-02 08:55] LABS: Creatinine Urine Random 96.9 mg/dl; Total Protein Urine Random 22.5 mg/dl (0-11.9)
[2020-02-02] MEDS: SODIUM CHLORIDE 0.9% 1000ML 1,000 ML IV SCH (11:31)
--- NOTE | 2020-02-02 17:11 | XCELERA ---
[id number]
[2020-02-02] MEDS ORDERED: GADOBUTROL 65ML VIAL IV ONE (21:01)
--- NOTE | 2020-02-02 22:02 | Hospitalist Progress Note ---
Date of Service February 02, 2020 Assessment & Plan (1) Acute kidney injury: Cr up to 1.6 on 01/31, unclear etiology resolved quickly with IV fluids, stop fluids today, Cr is 1.2, making adequate urine minimal protein on UA, based on spot urine and protein, estimated 0.2gm/24 hours no nephrotoxins UA is bland repeat BMP in the morning (2) Syncope: occurred while sitting in spiritism pew, had diaphoresis and light headed prior to episode that lasted a few seconds has been following with Dr. Cortez for postural hypotension, but he was not standing when this happened no arrhythmias on monitor except chronic afib, no pauses, no v tach could consider Holter monitor or event recorder, will talk with cardiology troponin 0.06, no ischemic changes on EKG no focal neurological deficits on exam concern for seizure activity per patient's who was beside him when this happened MRI brain today, no obvious abnormalities per my read by radiology report pending he ambulated today, was wide based, unsteady, his BP dropped 20 points systolic but he had no symptoms? he needs a rolling walker on d/c plan to hold Alfuzosin on discharge send home with rolling walker consider outpatient rhythm monitoring (3) Peripheral neuropathy: describes tingling, pain in bilateral legs, has difficulty walking on uneven surfaces or grass cannot find a prior work up check B 12, folic acid, TSH -- all normal check SPEP, results pending, will need follow up with PCP start on Neurontin 100mg BID, titrate up slowly as outpatient if it is effective (4) Atrial fibrillation, permanent: Patient remains on metoprolol tartrate 25 twice daily, apixaban 5 twice daily and aspirin 81 (5) S/P TAVR (transcatheter aortic valve replacement): Done at [facility] 1 year ago for aortic stenosis has been doing well since with exception of orthostatic hypotension management Dr. Macias echo today with valve in proper position, well functioning (6) Elevated troponin: Patient has chronically elevated troponin now with some lateral T wave inversions unclear if they are subsequent to his TAVR or not we will trend troponins and if there is any changes consider involving Dr. Macias his typical membership counselor. The patient has had no chest pain or discomfort with his symptoms this morning (7) WILLIE (obstructive sleep apnea): Patient typically wears BiPAP at night we will supply him with our unit as he does not have his with him (8) Nausea: Patient has had some nausea over the last few weeks his normal LFTs on presentation a gallbladder ultrasound will be ordered he has no defined discrete abdominal discomfort (9) BPH (benign prostatic hyperplasia): Patient has no lower urinary tract symptoms at this time he will continue on the alfuzocin and finasteride (10) DVT prophylaxis: SCDs and apixaban will serve as DVT prevention Patient states his lower extremities have been weak and he has had difficulty ambulating lately a PT OT evaluation will be undertaken Admission and Anticipated Discharge Date Admission Date: February 01, 2020 Subjective patient walked better today with rolling walker, no light headedness, no pre- syncope spoke with his at the bedside, she said that his right arm became rigid at the time of syncope, concerned for seizure MRI brain obtained, normal on my read but official radiology report pending echo with preserved EF, well functioning prosthetic aortic valve no pauses on monitor he is requiring oxygen, only 2 liters, discussed getting two step tomorrow discussed with Dr. Cortez who knows him well he suspects the alfuzosin could be causing symptoms, will stop this reviewed labs, Cr down to 1.2 from 1.6 Review of Systems Review of Systems: All systems reviewed & are unremarkable except as noted in Subjective Physical Exam Constitutional: WD/WN, vitals as above Eyes: PERRL, conjunctivae normal, anicteric sclerae ENMT: external ear and nose normal, oropharynx normal Neck: trachea midline, no thyromegaly Respiratory: normal respiratory effort, lungs clear to auscultation Cardiovascular: RRR, no murmur, no edema Gastrointestinal (Abdomen): normal bowel sounds, soft, nontender, no hepatosplenomegaly Musculoskeletal: no cyanosis or clubbing, extremities motor strength 5/5 Skin: no rashes, warm and dry Neurologic: patellar DTR's 2+ bilat, sensation intact and PERRL, EOMI, accommodation nl, no face palsy, no dysarthria Psychiatric: A+Ox3, euthymic affect Lymphatic: no cervical or axillary lymphadenopathy Results & Data Results & Data ([facility]) Vital Signs (Past 12 Hours) Vital Signs Temp Pulse Resp BP Pulse Ox 02/02/20 19:16 36.6 C 75 17 175/88 H 92 02/02/20 15:27 36.4 C L 88 18 186/74 H 95 02/02/20 12:06 36.9 C 68 20 152/85 H 96 Laboratory Results Laboratory Results - last 24 hr 02/02/20 02/02/20 02/02/20 06:00 06:48 06:48 WBC 7.21 RBC 4.47 L Hgb 12.5 L Hct 38.3 L MCV 85.7 MCH 28.0 MCHC 32.6 RDW Std Deviation 48.3 H RDW Coeff of Manju 15.4 H Plt Count 193 MPV 10.1 Sodium 138 Potassium 4.1 Chloride 106 Carbon Dioxide 26 Anion Gap 6.0 BUN 22 H Creatinine 1.24 D Est Cr Clr Drug Dosing 42.2 Est GFR ( Amer) 60.6 Est GFR (Non-Af Amer) 52.3 BUN/Creatinine Ratio 17.6 Glucose 99 Calcium 8.4 L Total Protein (PEP) Albumin (PEP) Xujef-4-Arhbblvdd Kqfaz-7-Kruoigxpy Leea-4-Ruuacrqk Swav-3-Mnjztppf Gamma Globulins Monoclonal Peak 3 Ser Monoclonl Protein Ser Monoclonal Prot 2 PEP Interpretation Urine Color Yellow Urine Appearance Cloudy A Urine pH 5.0 Ur Specific [place] 1.016 Urine Protein Trace H Urine Glucose (UA) Negative Urine Ketones Negative Urine Blood 3+ H Urine Nitrite Negative Urine Bilirubin Negative Urine Urobilinogen Negative Ur Leukocyte Esterase Negative Urine WBC (Auto) 1-5 Urine RBC (Auto) >30 H U Hyaline Cast (Auto) 0 U Epithel Cells (Auto) 0-5 Urine Bacteria (Auto) Negative Ur Random Creatinine U Random Total Protein 02/02/20 02/02/20 06:48 Unknown WBC RBC Hgb Hct MCV MCH MCHC RDW Std Deviation RDW Coeff of Manju Plt Count MPV Sodium Potassium Chloride Carbon Dioxide Anion Gap BUN Creatinine Est Cr Clr Drug Dosing Est GFR ( Amer) Est GFR (Non-Af Amer) BUN/Creatinine Ratio Glucose Calcium Total Protein (PEP) Pending Albumin (PEP) Pending Cstbi-5-Gukgylcur Pending Oqena-8-Ljwrpnzpe Pending Stdk-6-Nvypuyqj Pending Pnak-4-Hsvixhed Pending Gamma Globulins Pending Monoclonal Peak 3 Pending Ser Monoclonl Protein Pending Ser Monoclonal Prot 2 Pending PEP Interpretation Pending Urine Color Urine Appearance Urine pH Ur Specific [place] Urine Protein Urine Glucose (UA) Urine Ketones Urine Blood Urine Nitrite Urine Bilirubin Urine Urobilinogen Ur Leukocyte Esterase Urine WBC (Auto) Urine RBC (Auto) U Hyaline Cast (Auto) U Epithel Cells (Auto) Urine Bacteria (Auto) Ur Random Creatinine 96.9 U Random Total Protein 22.5 H Medications Administered Current Inpatient Medications Acetaminophen (Acetaminophen 500 Mg Tab) 1,000 mg PO TID PRN PRN Reason: Pain Stop: 03/01/20 15:35 Al Hydrox/Mg Hydrox/Simethicone (Aluminum/Magnesium Susp 30 Ml Udc) 15 ml PO Q4H PRN PRN Reason: Dyspepsia Stop: 03/01/20 15:35 Alfuzosin HCl (Alfuzosin Hcl 10 Mg Tab) 10 mg PO HS [facility] Stop: 03/01/20 20:59 Last Admin: 02/01/20 20:06 Dose: 10 mg Documented by: Apixaban (Apixaban 5 Mg Tablet) 5 mg PO BID [facility] Stop: 03/01/20 20:59 Last Admin: 02/02/20 08:26 Dose: 5 mg Documented by: Aspirin (Aspirin 81 Mg Ectab) [facility] Stop: 03/02/20 08:59 Last Admin: 02/02/20 08:26 Dose: 81 mg Documented by: Atorvastatin Calcium (Atorvastatin 20 Mg Tab) 20 mg PO QPM [facility] Stop: 03/01/20 20:59 Last Admin: 02/01/20 20:06 Dose: 20 mg Documented by: Calcium Carbonate (Calcium Carbonate 1250mg Tab) 1,250 [facility] [place] Stop: 03/02/20 08:59 Last Admin: 02/02/20 08:26 Dose: 1,250 mg Documented by: Docusate Sodium (Docusate Sodium 100 Mg Cap) 100 mg PO QAM [facility] Stop: 03/02/20 08:59 Last Admin: 02/02/20 08:26 Dose: 100 mg Documented by: Finasteride (Finasteride 5 Mg Tab) 5 mg PO QAM [facility] Stop: 03/02/20 08:59 Last Admin: 02/02/20 08:26 Dose: 5 mg Documented by: Gabapentin (Gabapentin 100 Mg Cap) 100 mg PO BID [facility] Stop: 03/02/20 10:44 Last Admin: 02/02/20 08:26 Dose: 100 mg Documented by: Metoprolol Tartrate (Metoprolol Tartrate 25 Mg Tab) 25 mg PO BID [facility] Stop: 03/01/20 20:59 Last Admin: 02/02/20 08:26 Dose: 25 mg Documented by: Ondansetron HCl (Ondansetron Inj 2 Mg/Ml 2 Ml Vial) 4 mg IV Q6H PRN PRN Reason: Nausea Stop: 03/01/20 15:35 Last Admin: 02/01/20 16:08 Dose: 4 mg Documented by: Pantoprazole Sodium (Pantoprazole 40 Mg Tab) 40 mg PO QAM [facility] Stop: 03/02/20 08:59 Last Admin: 02/02/20 08:26 Dose: 40 mg Documented by: Vitamin B Complex (Vitamin B Complex Tab) 1 tab PO QAM [facility] Stop: 03/02/20 08:59 Last Admin: 02/02/20 08:26 Dose: 1 tab Documented by: PG Care Time/CCT Total # of Minutes Spent Total Time Spent with Patient: Total time spent is greater than 50% in coordination of care (as documented) at patient's floor/unit and/or counseling patient: Coding Level of Care Code 41797 Subseq Hosp Care Lvl 3 Diagnoses Acute kidney injury N17.9 Syncope R55 Peripheral neuropathy G62.9 Atrial fibrillation, permanent I48.21 S/P TAVR (transcatheter aortic valve replacement) Z95.2 Elevated troponin R79.89 WILLIE (obstructive sleep apnea) G47.33 Nausea R11.0 BPH (benign prostatic hyperplasia) N40.0 DVT prophylaxis Z29.9
[2020-02-02] MEDS: ALFUZOSIN HCL 10 MG TAB PO SCH (22:09)
--- NOTE | 2020-02-02 22:09 | Electrocardiogram Report ---
Test Reason : Blood Pressure : / mmHG Vent. Rate : 083 BPM Atrial Rate : 234 BPM P-R Int : 000 ms QRS Dur : 112 ms QT Int : 380 ms P-R-T Axes : 000 -71 005 degrees QTc Int : 446 ms Atrial fibrillation with premature ventricular or aberrantly conducted complexes Left anterior fascicular block Cannot rule out Inferior infarct (cited on or before 19-MAR-2019) Nonspecific T wave abnormality Abnormal ECG When compared with ECG of 01-FEB-2020 06:26, No significant change was found Confirmed by Itz Raines ([id number]) on 02/02/2020 10:09:12 PM Referred By: REFERRED SELF Confirmed By:Itz Raines
[2020-02-02] MEDS: ATORVASTATIN 20 MG TAB PO SCH (22:10)
--- NOTE | 2020-02-02 22:45 | Electrocardiogram Report ---
Test Reason : Blood Pressure : / mmHG Vent. Rate : 075 BPM Atrial Rate : 000 BPM P-R Int : 000 ms QRS Dur : 114 ms QT Int : 408 ms P-R-T Axes : 000 -84 -07 degrees QTc Int : 455 ms Atrial fibrillation with premature ventricular or aberrantly conducted complexes Left axis deviation Abnormal ECG When compared with ECG of 01-FEB-2020 16:38, No significant change was found Confirmed by Itz Raines ([id number]) on 02/02/2020 10:45:32 PM Referred By: REFERRED SELF Confirmed By:Itz Raines
[2020-02-03 07:12] LABS: Creatinine Clr Calc Pharmacy 46.2 ml/min; Est GFR (African American) 67.8; Est GFR (Non-African American) 58.5; Potassium 4.4 mmol/L (3.5-5.1)
--- NOTE | 2020-02-03 07:13 | Magnetic Resonance Report ---
MRI OF THE BRAIN WITHOUT AND WITH IV CONTRAST CLINICAL HISTORY: Seizure. Syncope. Nausea. Dizziness. Fainting episode. COMPARISON STUDY: MRI the brain dated 06/21/2018, head CT dated 01/31/2020 TECHNIQUE: MRI of the brain was performed from the vertex to the skull base utilizing various T1 and T2 weighted sequences. Following the IV administration of 8 mL of Gadavist contrast, additional enhan piter images were obtained. FINDINGS: Sagittal T1, axial diffusion, proton density and T2 weighted axial, coronal FLAIR, and pre and post a xial T1-weighted images were acquired. These were supplemented with post gadolinium coronal T1 weight ed images. No intra or extra-axial mass lesions are visualized. Axial diffusion-weighted images reveal no evidence of acute or subacute infarction. There is no evidence of ventricular dilatation. Proton density T2-weighted and FLAIR images reveal scattered foci of increased T2 signal within the w marli matter, likely on a small vessel basis. 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 There are no abnormal flow voids. There is no evidence of pathologic enhancement. Results small right frontal scalp lipoma There is moderately extensive sinus disease. IMPRESSION: 1. No acute intracranial findings 2. No evidence of acute or subacute infarction 3. Old bilateral cerebellar infarcts 4. No evidence of intracranial mass ACT 112: Negative or not required by law. Electronically signed by: Rony Honeycutt M.D. 02/03/2020 7:11 AM
[2020-02-03 08:04] VITALS: BP 160/81; TEMP 97.7
[2020-02-03] MEDS: APIXABAN 5 MG TABLET PO SCH (08:19)
[2020-02-03] MEDS: GABAPENTIN 100 MG CAP PO SCH (08:19)
[2020-02-03] MEDS: FINASTERIDE 5 MG TAB PO SCH (08:20)
[2020-02-03] MEDS: ASPIRIN 81 MG ECTAB PO SCH (08:20)
[2020-02-03] MEDS: DOCUSATE SODIUM 100 MG CAP PO SCH (08:20)
[2020-02-03] MEDS: METOPROLOL TARTRATE 25 MG TAB PO SCH (08:20)
[2020-02-03] MEDS: CALCIUM CARBONATE 1250MG TAB PO SCH (08:20)
[2020-02-03] MEDS: VITAMIN B COMPLEX TAB PO SCH (08:20)
[2020-02-03] MEDS: PANTOprazole 40 MG TAB PO SCH (08:20)
[2020-02-03] MEDS ORDERED: AMLODIPINE BESYLATE 5 MG TAB PO SCH (09:00)
[2020-02-03 11:00] VITALS: PULSE 57; O2SAT 97
--- NOTE | 2020-02-03 11:05 | Discharge Summary ---
Date of Service February 03, 2020 Admission HPI Per Admitting Provider 84-year-old male who presented to the emergency department for possible syncope. The patient was at mosque with his significant other when he started feeling "all warm all over". The patient then had an episode while he was seated where he became unresponsive and started staring. He clenched his upper extremities. There is no tonic-clonic activity. The patient had some nausea and vomiting prior to arrival. He did not lose urinary continence. He denies having any headaches. He denies having any chest pain or difficulty breathing. He denies having any lower extremity pain or swelling. The patient did have 1 similar episode almost a year ago. At that time he was admitted to our facility and had a complete work-up. He has a history of aortic valve replacement. He does take chronic anticoagulation for atrial fibrillation. The patient does not have a pacemaker. The patient states that he feels back to baseline at this time with the exception of nausea. Patient has been bothered by intermittent nausea over the last few weeks. It is not necessarily postprandial is no associated abdominal discomfort. The patient has normal LFTs in the ER will be sent for gallbladder ultrasound. This patient has recently had interfaces with Dr. Painting regarding postural hypotension and has had his morning dose of amlodipine reduced this may be simply another effect of that Principal Diagnosis Syncope Discharge Exam Constitutional WD/WN, vitals as above Eyes PERRL, conjunctivae normal, anicteric sclerae ENMT external ear and nose normal, oropharynx normal Neck trachea midline, no thyromegaly Respiratory normal respiratory effort, lungs clear to auscultation Cardiovascular RRR, no murmur, no edema Gastrointestinal (Abdomen) normal bowel sounds, soft, nontender, no hepatosplenomegaly Musculoskeletal no cyanosis or clubbing, extremities motor strength 5/5 Skin no rashes, warm and dry Neurologic patellar DTR's 2+ bilat, sensation intact and PERRL, EOMI, accommodation nl, no face palsy, no dysarthria Psychiatric A+Ox3, euthymic affect Lymphatic no cervical or axillary lymphadenopathy Discharge Data Allergies Allergy/AdvReac Type Severity Reaction Status Date / Time lisinopril AdvReac Mild DIZZINESS Verified 01/31/20 13:26 silodosin [From Rapaflo] AdvReac NAUSEA Verified 01/31/20 13:26 tamsulosin AdvReac Verified 01/31/20 13:26 Consultations 01/31/20 13:56 ED Decision to Admit Stat 01/31/20 15:36 Consult Case Management - Discharge Planning Routine Ordered Studies 01/31/20 12:24 CT head/brain wo con Stat 01/31/20 15:36 US liver Routine 02/02/20 16:02 MR brain wo/w con Routine Hospital Course (1) Syncope: occurred while sitting in mosque pew, had diaphoresis and light headed prior to episode that lasted a few seconds has been following with Dr. Cortez for postural hypotension, but he was not standing when this happened no arrhythmias on monitor except chronic afib, no pauses, no v tach could consider Holter monitor or event recorder, defer to PCP and rn palliative care, Dr. Cortez troponin 0.06, no ischemic changes on EKG no focal neurological deficits on exam concern for seizure activity per patient's who was beside him when this happened MRI brain - old cerebellar strokes but no evidence of acute stroke, no tumor ambulated several times in the halls with therapy, no falls, no loss of balance, they recommend rolling walker plan to hold Alfuzosin on discharge, per Dr. Cortez this could be causing postural hypotension send home with rolling walker consider outpatient rhythm monitoring (2) Acute kidney injury: Cr up to 1.6 on 01/31, unclear etiology resolved quickly with IV fluids, Cr down to baseline, making adequate urine minimal protein on UA, based on spot urine and protein, estimated 0.2gm/24 hours no nephrotoxins UA is bland (3) Peripheral neuropathy: describes tingling, pain in bilateral legs, has difficulty walking on uneven surfaces or grass cannot find a prior work up check B 12, folic acid, TSH -- all normal check SPEP, results pending, will need follow up with PCP start on Neurontin 100mg BID, titrate up slowly as outpatient if it is effective (4) Atrial fibrillation, permanent: Patient remains on metoprolol tartrate 25 twice daily, apixaban 5 twice daily and aspirin 81 (5) S/P TAVR (transcatheter aortic valve replacement): Done at [facility] 1 year ago for aortic stenosis has been doing well since with exception of orthostatic hypotension management Dr. Macias echo with valve in proper position, well functioning, EF is normal (6) Elevated troponin: Patient has chronically elevated troponin now with some lateral T wave inversions unclear if they are subsequent to his TAVR or not we will trend troponins and if there is any changes consider involving Dr. Macias his typical rn palliative care. The patient has had no chest pain or discomfort with his symptoms this morning (7) WILLIE (obstructive sleep apnea): Patient typically wears BiPAP at night we will supply him with our unit as he does not have his with him (8) Nausea: Patient has had some nausea over the last few weeks his normal LFTs on presentation a gallbladder ultrasound will be ordered he has no defined discrete abdominal discomfort (9) BPH (benign prostatic hyperplasia): Patient has no lower urinary tract symptoms at this time he will continue on the finasteride stop alfuzosin as potential cause of postural hypotension Total Time Total Time Spent Total Time Spent (In Minutes): 32 minutes Total Time Includes: Examination of the Patient, Discharge Planning, Medication Reconciliation, Communication With Other Providers (Dr. Cortez) and Other (discussion with patient's ) Discharge Plan Discharge Items Patient Disposition: Home - Home Health Services Reason For Visit: SYNCOPE Discharge Diagnosis: Syncope Postural hypotension Condition on Discharge: Good Goals: stay well hydrated, well nourished increase strength and mobility with rolling walker, therapy at home Activity: Resume your previous activity Bathing: No limitations Exercise/Sports: Gradually increase as tolerated Driving/Machine Use: Resume 1 day after discharge Weightbearing: Full weightbearing Non-emergency contact: Primary Care Provider and [employer] Call non-emergency contact if: you have any medication questions and your symptoms worsen Follow-up/Referrals: Bigg Cortez Jr, MD, [facility] [Physician] - 03/02/20 10:00 am (one month) Kevin Minaya MD [Primary Care Provider] - 02/09/20 10:45 am (one week) Diet: Heart Healthy Addtl Attending Provider Instructions: Medications: - GABAPENTIN: 100mg twice a day, initial dosing for neuropathy, could titrate up if needed, follow up with Dr. Minaya - ALFUZOSIN: stop this medication, Dr. Cortez suspects it is contributing to postural hypotension Syncope no clear cause found while you were admitted no evidence of acute heart attack no pauses or slow heart rates on monitor, no extremely rapid heart rates either MRI brain with evidence of old cerebellar strokes but nothing new, no tumor echocardiogram with normal ejection fraction, prosthetic valve in good position and working well doing much better with therapy recommend using rolling walker for stability stay well hydrated, well nourished follow up with Dr. Minaya in one week Peripheral neuropathy from all the symptoms you describe such as decreased sensation, tingling, difficulty with balance on uneven surfaces B12, folate, thyroid levels were normal official diagnosis is made by EMG testing which is outpatient, defer to Dr. Minaya started on gabapentin 100mg BID, could increase dose as tolerated, if it helps serum protein electropharesis drawn and sent out as work up for neuropathy, results will be back next week, please ask Dr. Minaya about results Pending Studies at Discharge: Yes Studies:: serum protein electropharesis Stand-Alone Forms: My [employer], Smoking Cessation Medications and DC Order Prescriptions: New gabapentin 100 mg Capsule 100 mg PO BID 30 Days Qty: 60 RF: 0 Continued metoprolol tartrate 25 mg tablet 25 mg PO BID Qty: 180 RF: 3 atorvastatin 40 mg tablet 20 mg PO QPM Qty: 45 RF: 3 vitamin B complex [B Complex-Vitamin B12] Tablet 1 tab PO QAM RF: 0 calcium carbonate [Calcium 500] 500 mg calcium (1,250 mg) tablet 500 mg PO QAM RF: 0 apixaban 5 mg tablet 5 mg PO BID Qty: 180 RF: 3 amlodipine 2.5 mg tablet 2.5 mg PO QAM RF: 0 omeprazole 40 mg capsule,delayed release(DR/EC) 40 mg PO QAM RF: 0 aspirin [Adult Aspirin Regimen] 81 mg tablet,delayed release (DR/EC) 81 mg PO QAM RF: 0 docusate sodium 100 mg capsule 100 mg PO QAM RF: 0 finasteride 5 mg tablet 5 mg PO QAM RF: 0 loratadine [Claritin] 10 mg Tablet 10 mg PO DAILY PRN (Reason: Allergy Symptoms) RF: 0 acetaminophen [Acetaminophen Extra Strength] 500 mg Tablet 1,000 mg PO TID PRN (Reason: Pain) RF: 0 Discontinued alfuzosin 10 mg tablet extended release 24 hr 10 mg PO HS RF: 0 Discharge Orders: Discharge Order (Routine); Ordered 02/03/20 Ordered By: Juan Buck Admission Data Admit Date/Time: 02/01/20 21:45 Attending Provider: Juan Buck Admit Provider: Heber Franco Primary Care Provider: Kevin Minaya Other Providers: Heber Franco Other Interventions: Discharge Summary Assessment (RN) Last Done: 02/03/20 10:56 Coding Level of Care Code D/C Day Management >30 mins Diagnoses Syncope R55 Acute kidney injury N17.9 Peripheral neuropathy G62.9 Atrial fibrillation, permanent I48.21 S/P TAVR (transcatheter aortic valve replacement) Z95.2 Elevated troponin R79.89 WILLIE (obstructive sleep apnea) G47.33 Nausea R11.0 BPH (benign prostatic hyperplasia) N40.0
[2020-02-03 20:16] LABS: Albumin 3.5 g/dL (3.8-4.8); Alpha 1 Globulin 0.2 g/dL (0.2-0.3); Alpha 2 Globulin 0.7 g/dL (0.5-0.9); Beta-1-Globulin 0.4 g/dL (0.4-0.6); Beta-2-Globulin 0.4 g/dL (0.2-0.5); Gamma Globulin 1.2 g/dL (0.8-1.7); Monoclonal Protein Band 1 DNR g/dL (NONE DETECTED); Monoclonal Protein Band 2 DNR g/dL (NONE DETECTED); Monoclonal Protein Band 3 DNR g/dL (NONE DETECTED); Total Protein 6.4 g/dL (6.1-8.1)
== END 2020-02-03 13:05 | disposition home health service (06) | DRG 312 ==
LOC: 2S 12:06 → ED 12:06 → SUATTDRO 14:16 → 2S 15:09